=== PATIENT | male | born 1955 | race Caucasian/White ===

== ENCOUNTER → 2018-06-29 | Outpatient (CLI) | payer BC ==
[2018-06-29 08:10] LABS: Basophils # (A) 0.1 k/uL (0-0.2); Basophils % (A) 1 %; Eosinophils # (A) 0.3 k/uL (0-0.7); Eosinophils % (A) 5 %; HCT 49.5 % (39.0-53.0); HGB 16.6 gm/dL (13.0-17.5); Lymphocytes # (A) 1.8 k/uL (1.0-4.8); Lymphocytes % (A) 26 %; MCH 28.9 pg (25.0-35.0); MCHC 33.5 g/dL (31.0-37.0); MCV 86.3 fL (80.0-100.0); Mean Platelet Volume 7.6; Monocytes # (A) 0.5 k/uL (0-1.0); Monocytes % (A) 7 %; Neutrophils # (A) 4.1 k/uL (1.3-7.7); Neutrophils % (A) 59 %; Platelet Count 223 k/uL (150-450); RBC 5.74 m/uL (4.30-5.90); RDW 12.6 % (11.5-15.5); WBC 6.9 k/uL (3.8-10.6)
[2018-06-29 08:38] LABS: Erythrocyte Sedimentation Rate 2 mm/hr (0-15)
[2018-06-29 16:54] LABS: ALT 20 U/L (10-49); AST 18 U/L (14-35); Alkaline Phosphatase 62 U/L (41-126); C Reactive Protein <0.4 mg/dL (0.0-0.8); Calcium 9.4 mg/dL (8.7-10.3); Carbon Dioxide 22.1 mmol/L (21.6-31.8); Chloride 110 mmol/L (96-109); Cholesterol 142 mg/dL (0-200); Creatine Kinase 98 U/L (35-257); Globulin 1.5 g/dL (2.1-3.7); Glucose 99 mg/dL (70-110); LDL Cholesterol,Calculated 72.2 mg/dL (0.0-131.0); Potassium 4.5 mmol/L (3.5-5.5); Prostate Specific Antigen 0.5 ng/mL (0.0-4.5); Sodium 140 mmol/L (135-145); Total Bilirubin 0.6 mg/dL (0.3-1.2); Total Protein 5.7 g/dL (6.2-8.2)
== END ==
LOC: LABWHC1 07:05
PROVIDERS: ATTEND Internal Medicine
DX: N40.0 Benign prostatic hyperplasia without lower urinary tract symptoms (principal); E11.9 Type 2 diabetes mellitus without complications; E78.5 Hyperlipidemia, unspecified; I10 Essential (primary) hypertension; E87.2 Acidosis; E55.9 Vitamin D deficiency, unspecified
CPT/HCPCS: 36415; 80053; 80061; 82306; 82550; 84153; 84443; 85025; 85652; 86140

== ENCOUNTER → 2018-11-09 | Outpatient (CLI) | payer BC ==
[2018-11-09 16:39] LABS: Albumin 4.3 g/dL (3.80-4.90); Albumin/Globulin Ratio 2.53 (1.60-3.17); Bilirubin, Conjugated 0.2 mg/dL (0.20-0.40); Bilirubin,Unconjugated 0.6 mg/dL; Globulin 1.7 g/dL (1.6-3.3); Total Bilirubin 0.8 mg/dL (0.3-1.2)
== END | disposition home or self-care (01) ==
LOC: LABWHC1 08:52
PROVIDERS: ATTEND Internal Medicine
DX: R77.1 Abnormality of globulin (principal); R77.0 Abnormality of albumin; R77.8 Other specified abnormalities of plasma proteins
CPT/HCPCS: 36415; 80076

== ENCOUNTER 2018-11-13 19:11 | Observation (INO) | payer BC ==
[2018-11-13 18:05] LABS: Basophils # (A) 0.1 k/uL (0-0.2); Basophils % (A) 1 %; Eosinophils # (A) 0.3 k/uL (0-0.7); Eosinophils % (A) 3 %; HCT 47.9 % (39.0-53.0); HGB 15.9 gm/dL (13.0-17.5); Lymphocytes # (A) 1.9 k/uL (1.0-4.8); Lymphocytes % (A) 16 %; MCH 29.1 pg (25.0-35.0); MCHC 33.3 g/dL (31.0-37.0); MCV 87.5 fL (80.0-100.0); Mean Platelet Volume 6.7; Monocytes # (A) 0.7 k/uL (0-1.0); Monocytes % (A) 7 %; Neutrophils # (A) 8.2 k/uL (1.3-7.7); Neutrophils % (A) 73 %; Platelet Count 239 k/uL (150-450); RBC 5.48 m/uL (4.30-5.90); RDW 12.7 % (11.5-15.5); WBC 11.3 k/uL (3.8-10.6)
[2018-11-13 18:13] LABS: ALT 32 U/L (21-72); AST 22 U/L (17-59); Albumin 4.2 g/dL (3.5-5.0); Alkaline Phosphatase 67 U/L (38-126); Anion Gap 10 mmol/L; Blood Urea Nitrogen 17 mg/dL (9-20); Calcium 9.9 mg/dL (8.4-10.2); Carbon Dioxide 26 mmol/L (22-30); Chloride 101 mmol/L (98-107); Glucose 86 mg/dL (74-99); Lipase 153 U/L (23-300); Potassium 4.2 mmol/L (3.5-5.1); Sodium 137 mmol/L (137-145); Total Bilirubin 1.1 mg/dL (0.2-1.3); Total Protein 6.9 g/dL (6.3-8.2)
--- NOTE | 2018-11-13 18:25 | CT ---
EXAMINATION TYPE: CT abdomen pelvis w con DATE OF EXAM: 11/13/2018 COMPARISON: None HISTORY: Abdominal pain CT DLP: 1497 mGycm Automated exposure control for dose reduction was used. TECHNIQUE: Helical acquisition of images was performed from the lung bases through the pelvis. CONTRAST: Performed with Oral Contrast and with IV Contrast, patient injected with 100 mL of Isovue 3 00. FINDINGS: LUNG BASES: No acute findings. Coronary calcifications noted within the LAD. LIVER/GB: No significant abnormality is appreciated. PANCREAS: No significant abnormality is seen. SPLEEN: Spleen is normal in volume. However, there are approximately twelve 12 multifocal 1 - 2 cm ro unded splenic lesions which are hypodense, of soft tissue CT attenuation. Differential includes infec tion, sarcoidosis, as well as lymphoma metastatic disease. The spleen was reportedly normal on the ultrasound. There are no other comparison imaging studies. If clinically necessary, MRI and/o r PET CT can be used to delineate the differential diagnostic considerations. Also, if prior CT or MR I are available for direct comparison that would also delineate the differential considerations, and an addendum can be made to this report. ADRENALS: No significant abnormality is seen. KIDNEYS: No significant abnormality is seen. FREE AIR: No free air is visualized. RETROPERITONEAL ADENOPATHY: None visualized REPRODUCTIVE ORGANS: No significant abnormality is seen URINARY BLADDER: No significant abnormality is seen. PELVIC ADENOPATHY: None visualized. OSSEOUS STRUCTURES: No significant abnormality is seen. BOWEL: The most striking finding on this CT examination is moderate-marked ill-defined circumferent ial mural thickening at the junction of the rectum and sigmoid, with moderate marked pericolonic robert atous reticulation and involvement of a large diverticulum. Tiny lymph nodes are noted tracking up th e sigmoid mesocolon with a few scattered subcentimeter nonenlarged left periaortic lymph nodes extend ing up to a position immediately caudal to the left renal vein. OTHER: No acute vascular findings IMPRESSION: THE ACUTE PROCESS IS THAT OF MODERATE-PLUS ACUTE DISTAL SIGMOID DIVERTICULITIS DESCRIBED. UNDERLYI NG MUCOSAL PROCESS CAN BE EXCLUDED WITH EVENTUAL FOLLOW-UP DIRECT VISUALIZATION. MULTIFOCAL SPLENIC LESIONS. CORONARY CALCIFICATIONS.
[2018-11-13] MEDS ORDERED: LEVOFLOXACIN 750MG-D5W PMX 750 MG in DEXTROSE/WATER 1 150ML.BAG IVPB STA (20:01)
[2018-11-13] MEDS ORDERED: metroNIDAZOLE-NS PMX 500 MG in SALINE 1 100ML.BAG IVPB STA (20:04)
--- NOTE | 2018-11-13 20:18 | ED ---
Abdominal Pain HPI - General Chief Complaint: Abdominal Pain Stated Complaint: Abn CT Time Seen by Provider: 11/13/18 20:00 Source: patient, RN notes reviewed Mode of arrival: ambulatory Limitations: no limitations - History of Present Illness Initial Comments: 63-year-old male presented from outpatient CT with chief complaint of abdominal pain. Patient's been having abdominal pain and cramping with mild diarrhea over the last week. Patient saw PCP today and sent him hospital for CT. Patient CT shows evidence of diverticulitis. Patient states he has no history of this. Denies fever, chills, night sweats, chest pain, nausea vomiting. Patient had no noted melena or hematochezia. - Related Data Home Medications Medication Instructions Recorded Confirmed Ascorbic Acid [Vitamin C] 1,000 mg PO DAILY 11/13/18 11/13/18 Aspirin EC [Ecotrin Low Dose] 81 mg PO DAILY 11/13/18 11/13/18 Cholecalciferol [Vitamin D3] 1,000 unit PO DAILY 11/13/18 11/13/18 Lisinopril-Hctz 10-12.5 mg 1 tab PO Q48H 11/13/18 11/13/18 [Zestoretic 10-12.5] Metoprolol Tartrate [Lopressor] 25 mg PO BID 11/13/18 11/13/18 Pravastatin Sodium [Pravachol] 20 mg PO HS 11/13/18 11/13/18 Allergies Allergy/AdvReac Type Severity Reaction Status Date / Time No Known Allergies Allergy Verified 11/13/18 20:06 Review of Systems ROS Statement: Those systems with pertinent positive or pertinent negative responses have been documented in the HPI. ROS Other: All systems not noted in ROS Statement are negative. Past Medical History Past Medical History: Hyperlipidemia, Hypertension History of Any Multi-Drug Resistant Organisms: None Reported Past Surgical History: Hernia Repair Past Psychological History: No Psychological Hx Reported Smoking Status: Never smoker Past Alcohol Use History: None Reported Past Drug Use History: None Reported General Exam Limitations: no limitations General appearance: alert, in no apparent distress Head exam: Present: atraumatic, normocephalic, normal inspection Neck exam: Present: normal inspection. Absent: tenderness, meningismus, lymphadenopathy Respiratory exam: Present: normal lung sounds bilaterally. Absent: respiratory distress, wheezes, rales, rhonchi, stridor Cardiovascular Exam: Present: regular rate, normal rhythm, normal heart sounds. Absent: systolic murmur, diastolic murmur, rubs, gallop, clicks GI/Abdominal exam: Present: soft, tenderness (Moderate left lower quadrant tenderness), normal bowel sounds. Absent: distended, guarding, rebound, rigid Course Vital Signs 11/13/18 19:41 Temperature 98.4 F Pulse Rate 82 Respiratory 16 Rate Blood Pressure 166/89 O2 Sat by Pulse 98 Oximetry Medical Decision Making - Medical Decision Making 63-year-old male presented for abdominal pain. CT shows evidence of moderate diverticulitis. Patient will be admitted for IV antibiotics, surgery consult. - Lab Data Result diagrams: 11/13/18 17:45 11/13/18 17:45 Lab Results 11/13/18 11/13/18 Range/Units 17:45 17:45 WBC 11.3 H (3.8-10.6) k/uL RBC 5.48 (4.30-5.90) m/uL Hgb 15.9 (13.0-17.5) gm/dL Hct 47.9 (39.0-53.0) % MCV 87.5 (80.0-100.0) fL MCH 29.1 (25.0-35.0) pg MCHC 33.3 (31.0-37.0) g/dL RDW 12.7 (11.5-15.5) % Plt Count 239 (150-450) k/uL Neutrophils % 73 % Lymphocytes % 16 % Monocytes % 7 % Eosinophils % 3 % Basophils % 1 % Neutrophils # 8.2 H (1.3-7.7) k/uL Lymphocytes # 1.9 (1.0-4.8) k/uL Monocytes # 0.7 (0-1.0) k/uL Eosinophils # 0.3 (0-0.7) k/uL Basophils # 0.1 (0-0.2) k/uL Sodium 137 (137-145) mmol/L Potassium 4.2 (3.5-5.1) mmol/L Chloride 101 (98-107) mmol/L Carbon Dioxide 26 (22-30) mmol/L Anion Gap 10 mmol/L BUN 17 (9-20) mg/dL Creatinine 0.69 (0.66-1.25) mg/dL Est GFR (CKD-EPI)AfAm >90 (>60 ml/min/1.73 sqM) Est GFR (CKD-EPI)NonAf >90 (>60 ml/min/1.73 sqM) Glucose 86 (74-99) mg/dL Calcium 9.9 (8.4-10.2) mg/dL Total Bilirubin 1.1 (0.2-1.3) mg/dL AST 22 (17-59) U/L ALT 32 (21-72) U/L Alkaline Phosphatase 67 (38-126) U/L Total Protein 6.9 (6.3-8.2) g/dL Albumin 4.2 (3.5-5.0) g/dL Lipase 153 (23-300) U/L Disposition Clinical Impression: Diverticulitis Disposition: ADMITTED IP TO THIS HOSP Condition: Stable Referrals: Nikhil Riley MD [Primary Care Provider] - 1-2 days
[2018-11-13] MEDS ORDERED: ONDANSETRON 4 MG/2 ML VIAL IVP PRN (20:41)
[2018-11-13] MEDS ORDERED: ACETAMINOPHEN TAB 325 MG TAB PO PRN (20:41)
[2018-11-13] MEDS ORDERED: HYDROcodone/APAP 5-325MG 1 EACH TAB PO PRN (20:41)
[2018-11-13] MEDS ORDERED: MORPHINE SULFATE 4 MG/ML SYRINGE IV PRN (20:41)
[2018-11-13] MEDS ORDERED: NALOXONE 0.4 MG/ML 1 ML VIAL IV PRN (20:41)
[2018-11-13] MEDS: SODIUM CHLORIDE 0.9% 1,000 ML IV SCH (20:46)
[2018-11-13 21:59] VITALS: BMI 29.5
[2018-11-13] MEDS: METOPROLOL TARTRATE 25 MG TAB PO SCH (23:18)
[2018-11-13] MEDS: PRAVASTATIN SODIUM 20 MG TAB PO SCH (23:19)
[2018-11-14] MEDS: metroNIDAZOLE-NS PMX 500 MG in SALINE 1 100ML.BAG IVPB SCH ×3 (05:47→22:37)
[2018-11-14] MEDS: LISINOPRIL-HCTZ 10-12.5 MG 1 EACH TAB PO SCH (08:34)
[2018-11-14] MEDS: METOPROLOL TARTRATE 25 MG TAB PO SCH ×2 (08:34→21:02)
[2018-11-14] MEDS: ASCORBIC ACID 500 MG TAB PO SCH (08:34)
[2018-11-14] MEDS: CHOLECALCIFEROL 1,000 UNIT TAB PO SCH (08:34)
[2018-11-14] MEDS: ASPIRIN 81 MG PO SCH (08:34)
[2018-11-14] MEDS: SODIUM CHLORIDE 0.9% 1,000 ML IV SCH ×2 (08:37→17:33)
--- NOTE | 2018-11-14 15:25 | P.GSCN ---
History of Present Illness Consult date: 11/14/18 History of present illness: This is a 63-year-old male who presented with a chief complaint of lower abdominal pain. This been going on for a couple days he describes the pain as cramping. He's never had pain like this before in the past. He denies any fevers or chills. He's had some diarrhea. He is also passing normal bowel movements. He denies any blood in his stool. His last colonoscopy was several years ago he states and he states it was normal at that time. He denies any abdominal surgery in the past. He states that since he's been in the hospital was pain is slightly improved. Past Medical History Past Medical History: Hyperlipidemia, Hypertension History of Any Multi-Drug Resistant Organisms: None Reported Past Surgical History: Hernia Repair Past Psychological History: No Psychological Hx Reported Smoking Status: Never smoker Past Alcohol Use History: None Reported Past Drug Use History: None Reported Medications and Allergies Home Medications Medication Instructions Recorded Confirmed Type Ascorbic Acid [Vitamin C] 1,000 mg PO DAILY 11/13/18 11/13/18 History Aspirin EC [Ecotrin Low Dose] 81 mg PO DAILY 11/13/18 11/13/18 History Cholecalciferol [Vitamin D3] 1,000 unit PO DAILY 11/13/18 11/13/18 History Lisinopril-Hctz 10-12.5 mg 1 tab PO Q48H 11/13/18 11/13/18 History [Zestoretic 10-12.5] Metoprolol Tartrate [Lopressor] 25 mg PO BID 11/13/18 11/13/18 History Pravastatin Sodium [Pravachol] 20 mg PO HS 11/13/18 11/13/18 History Allergies Allergy/AdvReac Type Severity Reaction Status Date / Time No Known Allergies Allergy Verified 11/13/18 20:06 Surgical - Exam Osteopathic Statement: *. No significant issues noted on an osteopathic structural exam other than those noted in the History and Physical/Consult. Vital Signs Temp Pulse Resp BP Pulse Ox 98.4 F 82 16 166/89 98 11/13/18 19:41 11/13/18 19:41 11/13/18 19:41 11/13/18 19:41 11/13/18 19:41 - General well developed, well nourished, no distress - Eyes PERRL - Neck no masses, trachea midline - Respiratory normal expansion, normal respiratory effort - Cardiovascular Rhythm: regular - Abdomen Mild tenderness palpation in the lower abdomen. No rebound rigidity or guarding Abdomen: soft - Musculoskeletal normal gait - Psychiatric oriented to time, oriented to person, oriented to place Results - Labs 11/13/18 17:45 11/13/18 17:45 Abnormal Lab Results - Last 24 Hours (Table) 11/13/18 Range/Units 17:45 WBC 11.3 H (3.8-10.6) k/uL Neutrophils # 8.2 H (1.3-7.7) k/uL Diabetes panel 11/13/18 Range/Units 17:45 Sodium 137 (137-145) mmol/L Potassium 4.2 (3.5-5.1) mmol/L Chloride 101 (98-107) mmol/L Carbon Dioxide 26 (22-30) mmol/L BUN 17 (9-20) mg/dL Creatinine 0.69 (0.66-1.25) mg/dL Glucose 86 (74-99) mg/dL Calcium 9.9 (8.4-10.2) mg/dL AST 22 (17-59) U/L ALT 32 (21-72) U/L Alkaline Phosphatase 67 (38-126) U/L Total Protein 6.9 (6.3-8.2) g/dL Albumin 4.2 (3.5-5.0) g/dL Calcium panel 11/13/18 Range/Units 17:45 Calcium 9.9 (8.4-10.2) mg/dL Albumin 4.2 (3.5-5.0) g/dL Pituitary panel 11/13/18 Range/Units 17:45 Sodium 137 (137-145) mmol/L Potassium 4.2 (3.5-5.1) mmol/L Chloride 101 (98-107) mmol/L Carbon Dioxide 26 (22-30) mmol/L BUN 17 (9-20) mg/dL Creatinine 0.69 (0.66-1.25) mg/dL Glucose 86 (74-99) mg/dL Calcium 9.9 (8.4-10.2) mg/dL Adrenal panel 11/13/18 Range/Units 17:45 Sodium 137 (137-145) mmol/L Potassium 4.2 (3.5-5.1) mmol/L Chloride 101 (98-107) mmol/L Carbon Dioxide 26 (22-30) mmol/L BUN 17 (9-20) mg/dL Creatinine 0.69 (0.66-1.25) mg/dL Glucose 86 (74-99) mg/dL Calcium 9.9 (8.4-10.2) mg/dL Total Bilirubin 1.1 (0.2-1.3) mg/dL AST 22 (17-59) U/L ALT 32 (21-72) U/L Alkaline Phosphatase 67 (38-126) U/L Total Protein 6.9 (6.3-8.2) g/dL Albumin 4.2 (3.5-5.0) g/dL Assessment and Plan Assessment: Acute uncomplicated diverticulitis Plan: Continue IV antibiotics. Patient may have clear liquids today. As his pain i mproves we may advance his diet. No plans for acute surgical intervention. Patient will need a colonoscopy as an outpatient 6 weeks after resolution of diverticulitis.
[2018-11-14] MEDS: LEVOFLOXACIN 750MG-D5W PMX 750 MG in DEXTROSE/WATER 1 150ML.BAG IVPB SCH (21:02)
[2018-11-14] MEDS: PRAVASTATIN SODIUM 20 MG TAB PO SCH (21:02)
[2018-11-15] MEDS: SODIUM CHLORIDE 0.9% 1,000 ML IV SCH ×2 (05:36→12:07)
[2018-11-15] MEDS: metroNIDAZOLE-NS PMX 500 MG in SALINE 1 100ML.BAG IVPB SCH ×2 (05:52→13:21)
[2018-11-15] MEDS: METOPROLOL TARTRATE 25 MG TAB PO SCH ×2 (08:51→22:20)
[2018-11-15] MEDS: ASPIRIN 81 MG PO SCH (08:51)
[2018-11-15] MEDS: CHOLECALCIFEROL 1,000 UNIT TAB PO SCH (08:51)
[2018-11-15] MEDS: ASCORBIC ACID 500 MG TAB PO SCH (08:51)
[2018-11-15 13:25] LABS: Basophils % (A) 0 %; Eosinophils # (A) 0.2 k/uL (0-0.7); Eosinophils % (A) 2 %; HCT 47.8 % (39.0-53.0); HGB 15.3 gm/dL (13.0-17.5); Lymphocytes # (A) 1.3 k/uL (1.0-4.8); Lymphocytes % (A) 11 %; MCH 28.2 pg (25.0-35.0); MCHC 32.1 g/dL (31.0-37.0); Mean Platelet Volume 7.2; Monocytes # (A) 0.7 k/uL (0-1.0); Monocytes % (A) 6 %; Neutrophils % (A) 80 %; Platelet Count 241 k/uL (150-450); RBC 5.43 m/uL (4.30-5.90); RDW 12.7 % (11.5-15.5); WBC 11.3 k/uL (3.8-10.6)
--- NOTE | 2018-11-15 13:30 | P.PN ---
Subjective Progress Note Date: 11/15/18 She states he's feeling well today. He had no acute events overnight. He still has minimal lower abdominal tenderness. Mostly when he is having a bowel movement. He denies any diarrhea. He denies any blood in his stool. He is tolerating his full liquid diet Objective - Vital Signs Vital signs: Vital Signs Temp 97.3 F L 11/15/18 07:50 Pulse 79 11/15/18 07:50 Resp 16 11/15/18 07:50 BP 141/67 11/15/18 07:50 Pulse Ox 97 11/15/18 07:50 Intake & Output 11/14/18 11/15/18 11/15/18 18:59 06:59 18:59 Intake Total 1979 600 Balance 1979 600 Intake: Intake, IV Titration 900 600 Amount Levofloxacin 750Mg-D5w 150 Pmx 750 mg In Dextrose/ Water 1 150ml.bag @ 100 mls/hr IVPB HS SAMIRA Rx#: [id number] Sodium Chloride 0.9% 1, 800 450 000 ml @ 100 mls/hr IV . Q10H SAMIRA Rx#:[id number] metroNIDAZOLE-NS PMX 500 100 mg In Saline 1 100ml.bag @ 100 mls/hr IVPB Q8H SAMIRA Rx#:[id number] Oral 1080 Other: Voiding Method Toilet # Voids 1 # Bowel Movements 3 - Constitutional General appearance: Present: cooperative - Respiratory Details: Nonlabored - Cardiovascular Rhythm: regular - Gastrointestinal Gastrointestinal Comment(s): Soft mild tenderness palpation lower abdomen nondistended no rebound rigidity or guarding - Psychiatric Psychiatric: Present: A&O x's 3 - Labs CBC & Chem 7: 11/13/18 17:45 11/13/18 17:45 Labs: Microbiology - Last 24 Hours (Table) 11/13/18 20:35 Blood Culture - Preliminary Blood No Growth after 24 hours Assessment and Plan Assessment: Acute uncomplicated diverticulitis Plan: Patient is on antibiotics. He may advance his diet once he is tolerating falls to a soft low-residue diet. No plans for acute surgical intervention. Once his pain is resolved and is tolerating his diet he may be discharged from a surgical standpoint and follow up in 6 weeks for colonoscopy.
--- NOTE | 2018-11-15 19:07 | HP ---
HISTORY AND PHYSICAL DATE OF ADMISSION: 11/13/2018 DATE OF SERVICE: 11/14/2018 This is a patient of Dr. Riley office and he is being admitted by me as I am covering Dr. Riley this weekend. HISTORY OF PRESENT ILLNESS: This is a 63-year-old white male who had a CT scan, done as an outpatient and following this the patient went to the emergency room. In the emergency, he was complaining of lower abdominal pain and the patient had lower abdominal pain for 2-3 days and this was getting worse and pain was like a cramping pain and he also has some diarrhea but no blood in the stool. The CT scan showed what was consistent with acute distal sigmoid diverticulitis, his CBC showed WBC count of 11.3, hemoglobin 15.9, and platelet count 239,000. Sodium 137, potassium 4.2, BUN 17, creatinine 0.69. Liver enzymes within normal limits. Blood sugar was 86. The patient was admitted to the hospital for further evaluation and treatment. PAST MEDICAL HISTORY: Reveals that he is known to have hypertensive cardiovascular disease and hyperlipidemia. CURRENT MEDICATIONS: Include Lopressor 25 mg mg p.o. b.i.d. He is also on vitamin D3 and vitamin C, Pravachol 20 mg p.o. daily, Zestoretic 10-12.5 every other day, aspirin 81 mg p.o. daily. ALLERGIES: He has no known drug allergies. SOCIAL HISTORY: He does not smoke and he does not drink alcohol. FAMILY HISTORY: Positive for hypertension. REVIEW OF SYSTEMS: Patient denies any headache. Appetite has been good. He has abdominal pain as mentioned before and has had some diarrhea. He has no polyuria or dysuria. He has no neurological symptoms. PHYSICAL EXAMINATION: Reveals a 63-year-old white male well nourished and well developed. He is in no acute distress, but he is still complaining of some pain and tenderness in the lower abdomen in the left lower quadrant area. He is afebrile with a temperature 98.6. There is no jaundice. There is no generalized lymphadenopathy. No petechia or bruises. Heart is in sinus rhythm. Lungs are clear to auscultation and percussion. ABDOMEN: Soft. There is tenderness in the left lower quadrant. Examination of the lower extremities reveal no pitting edema. Neurologic examination does not reveal any localizing signs. IMPRESSION: 1. Lower abdominal pain. 2. Acute diverticulitis of the sigmoid colon. 3. Hypertensive cardiovascular disease. 4. Hyperlipidemia. PLAN: Patient will be admitted to the hospital. We will start him on IV antibiotics and he will be placed on Levaquin and metronidazole. We will also get a surgical consultation and initially placed him on clear liquids and will advance diet gradually. Prognosis guarded. The diagnosis, prognosis and therapeutic plans were discussed in detail with the patient and also with his . MMTIMOTHY / ZEENAT: [id number] /
[2018-11-15] MEDS: PRAVASTATIN SODIUM 20 MG TAB PO SCH (22:20)
[2018-11-15] MEDS: LEVOFLOXACIN 750MG-D5W PMX 750 MG in DEXTROSE/WATER 1 150ML.BAG IVPB SCH (22:20)
[2018-11-16] MEDS: metroNIDAZOLE-NS PMX 500 MG in SALINE 1 100ML.BAG IVPB SCH ×4 (00:20→22:17)
[2018-11-16] MEDS: METOPROLOL TARTRATE 25 MG TAB PO SCH ×2 (07:16→20:35)
[2018-11-16] MEDS: ASCORBIC ACID 500 MG TAB PO SCH (07:16)
[2018-11-16] MEDS: CHOLECALCIFEROL 1,000 UNIT TAB PO SCH (07:16)
[2018-11-16] MEDS: LISINOPRIL-HCTZ 10-12.5 MG 1 EACH TAB PO SCH (07:16)
[2018-11-16] MEDS: ASPIRIN 81 MG PO SCH (07:16)
[2018-11-16] MEDS: SODIUM CHLORIDE 0.9% 1,000 ML IV SCH ×3 (09:16→22:18)
[2018-11-16] MEDS: ENOXAPARIN 40 MG/0.4 ML SYRINGE SQ SCH (09:20)
--- NOTE | 2018-11-16 12:33 | US ---
EXAMINATION TYPE: US abdomen limited DATE OF EXAM: 11/16/2018 COMPARISON: 11/13/2018 CLINICAL HISTORY: abnormal multifocal splenic lesion. EXAM MEASUREMENTS: Spleen: 11.1 x 11.2 x 4.4cm Left Kidney: 12.6 x 6.5 x 5.6cm 1. Spleen: very subtle hyperechoic lobular area noted inferiorly = 4.6 x 4.2 x 2.0cm; multiple US mac erika settings used to discern splenic lesions 2. Left Kidney: no hydronephrosis or masses are seen IMPRESSION: There is a 4.6 cm hyperechoic area within the spleen. The multiple smaller lesion seen by CT scan are not as well-seen by ultrasound. Differential diagnosis would include infection, sarcoido sis, metastasis, multiple hemangioma. MRI would be required for further evaluation.
--- NOTE | 2018-11-16 16:36 | P.PN ---
Subjective Progress Note Date: 11/16/18 She states he's feeling well today. He had no acute events overnight. He still has minimal lower abdominal tenderness. Mostly when he is having a bowel movement. He denies any diarrhea. He denies any blood in his stool. Objective - Vital Signs Vital signs: Vital Signs Temp 98.4 F 11/16/18 14:41 Pulse 97 11/16/18 14:41 Resp 12 11/16/18 14:41 BP 150/71 11/16/18 14:41 Pulse Ox 99 11/16/18 14:41 Intake & Output 11/15/18 11/16/18 11/16/18 18:59 06:59 18:59 Intake Total 2260 1050 Balance 2260 1050 Intake: Intake, IV Titration 600 1050 Amount Sodium Chloride 0.9% 1, 600 1050 000 ml @ 75 mls/hr IV . [id number] SAMIRA Rx#:[id number] Oral 1660 Other: Voiding Method Toilet Toilet # Voids 2 2 - Constitutional General appearance: Present: cooperative - Respiratory Details: nonlabored - Cardiovascular Rhythm: regular - Psychiatric Psychiatric: Present: A&O x's 3 - Labs CBC & Chem 7: 11/15/18 13:12 11/13/18 17:45 Labs: Microbiology - Last 24 Hours (Table) 11/13/18 20:35 Blood Culture - Preliminary Blood No Growth after 48 hours Assessment and Plan Assessment: Acute uncomplicated diverticulitis Plan: Patient is on antibiotics. As his pain improves he may have his diet advanced. No plans for acute surgical intervention. Once his pain is resolved and is tolerating his diet he may be discharged from a surgical standpoint and follow up in 6 weeks for colonoscopy.
--- NOTE | 2018-11-16 18:36 | MR ---
EXAMINATION TYPE: MR abdomen wo/w con DATE OF EXAM: 11/16/2018 COMPARISON: CT 11/13/2018; ultrasound 11/16/2018 HISTORY: abnormal u/s CONTRAST: Standard multiplanar, multisequence MRI departmental protocol utilizing 7.5 mL intravenous Gadavist gadolinium contrast. FINDINGS: Liver and biliary tree: Negative. Pancreas: Negative. Spleen: The previously seen CT hypodense multifocal lesions are well demonstrated on the T1 postcontr ast sequences, but not the T2 weighted sequences. Therefore, the lesions do not represent splenic hem angiomas or cysts. Differential diagnosis includes inflammatory/infectious etiologies, as well as lym phoma and metastatic disease. Hamartomas are rare, and multifocal splenic hamartomas are even more r are, except in tuberous sclerosis. Kidneys and adrenals: Negative. Lymph node stations: No adenopathy. Other: No incidentals. IMPRESSION: The multifocal CT lesions are redemonstrated, but they are nearly isoechoic on sonography and on T2W sequences.
--- NOTE | 2018-11-16 20:11 | PN ---
PROGRESS NOTE NEW DATA: FULL CODE. His height is 5 feet 5 inches, weight 82.7 kg, BSA 1.90 m2, BMI 30.3 kg/m2. ALLERGIES: UNKNOWN. HISTORY: Mr. Baldemar Singer was seen initially in the office with a complaint of abdominal pain, mainly on the left side. At that time the patient was sent for a CT scan of the abdomen in the hospital as well as laboratories. He was started on antibiotic; given a prescription for Cipro 500 mg twice a day and Flagyl 500 mg q.8 hours. Subsequently the patient had the CT scan of the abdomen, which indicated that the spleen was normal volume, but there were 12 multifocal 1-2 cm rounded splenic lesions, hypodense, and the differentials mentioned were infection, sarcoidosis, lymphoma or metastatic disease. Spleen was reported normal on an ultrasound done on 12/18/2009. They recommended MRI for that purpose. Otherwise, pancreas was normal. Liver and gallbladder were normal. The lung bases were normal. Adrenals were normal. Kidney was normal. No free air and no retroperitoneal adenopathy. Reproductive organ was negative. Bladder was negative. No pelvic adenopathy and none in the osseous structures. However, in the bowel they found the most striking evidence. There is markedly ill-defined circumferential mural thickening at the junction of the rectum and the sigmoid with moderate marked pericolonic edematous reticulation, involvement of large diverticula. There are a few scattered non-enlarged left periaortic lymph nodes extending to a position caudal to the left renal vein. The final impression is 1) acute process of moderate plus acute distal sigmoid diverticulitis, with the underlying mucosal process and needed visualization in the future; 2) multiple splenic lesions; 3) coronary calcifications. The patient was subsequently admitted to the hospital by Dr. Gary Magallon in my temporary absence and was followed by Dr. Chema Ryder, the surgeon, in surgical consultation. Today Dr. Ryder did see the patient and stated that he still has the minimal lower abdominal tenderness when he has bowel movement. No diarrhea. His impression is acute uncomplicated diverticulitis. His plan is to continue the antibiotic; no surgical intervention; and once the pain is resolved and he is tolerating his diet, he can be discharged from a surgical standpoint and later on in 6 weeks he can have a colonoscopy. The patient also today had an ultrasound of the abdomen because of the spleen, and it was found again that the spleen size is 11.1 x 11.2 x 4.4 cm. The left kidney is 12.6 x 6.5 x 5.6. The spleen has a hyperechoic lobular area 4.6 x 4.2 x 2.0. Left kidney has no hydronephrosis. The impression is a 4.6 hyperechoic area within the spleen. The multiple smaller lesions by the CT scan are not well seen by the ultrasound. His differential diagnosis is infection, sarcoidosis, metastasis, multiple hemangioma. He is requiring an MRI for this specific evaluation. Subsequently, after I saw and evaluated the patient clinically, an MRI was ordered to be done. I called the nursing staff subsequently to proceed with an MRI. It will be done at 4:30 this evening and we will subsequently follow the results. As of today, the patient was seen and I talked with the patient and his as well. His vital signs were stable. His temperature was 98.4, pulse regular sinus at 97, his respiratory rate 12, his blood pressure 150/71 and oxygen saturation was 99%. His laboratory today shows white count mildly elevated at 11.3 with hemoglobin 15.3 and hematocrit 47.8. His neutrophil count was 9 and his platelet count 241, normal. On admission on November 13 his renal function was stable with the estimated glomerular filtration rate for non- more than 90. The patient also is not a diabetic and his blood sugar on admission was 86. Normal liver enzymes. The lipase was 153. On examination, the patient was conscious, alert, oriented x3. His was at bedside. His antibiotic is infusing. Neck was supple. Oropharynx was normal. Chest was clear to auscultation and percussion. No wheezes. No rhonchi. The heart was regular sinus rhythm. PMI in the fifth intercostal space. Normal S1, S2. No gallop. ABDOMEN: He had tenderness on the left side of the colon toward the sigmoid and rectosigmoid. molding machine tender with palpation. Still has bowel movement and advised to continue with the soft diet. No advances at this time. The antibiotic is infusing. Extremities have no edema and positive pulses. ASSESSMENT: 1. Acute diverticulitis of the sigmoid area with diverticular disease. 2. Underlying multiple nodules of the spleen. Etiology is unclear. Further treatment depends on the results of the investigation with the MRI of the spleen. Further consultation depends also on the result. We will repeat CBC with differential in a.m. Please note: I did call him and discussed with him the results of the ultrasound of the spleen as well as informing him that the MRI will be done for further investigation. MMODL / IJN: [id number] /
[2018-11-16] MEDS: LEVOFLOXACIN 750MG-D5W PMX 750 MG in DEXTROSE/WATER 1 150ML.BAG IVPB SCH (20:35)
[2018-11-16] MEDS: PRAVASTATIN SODIUM 20 MG TAB PO SCH (20:35)
--- NOTE | 2018-11-16 22:47 | PN ---
PROGRESS NOTE This was dictated on 11/15/2018, but apparently the dictation did not go through. So I am re-dictating. DATE OF SERVICE: 11/15/2018 This is a 63-year-old white male who was brought to the emergency room with lower abdominal pain which was mainly in the left lower abdomen. In the ER he had a CT scan of the abdomen and pelvis. This showed evidence of distal sigmoid diverticulitis, and the patient was admitted to the hospital for further evaluation and treatment. The patient was started on IV antibiotics and he is currently receiving IV Levaquin and metronidazole. Clinically patient is improving and patient's pain is also getting better. The patient was seen by Dr. Ryder, who saw the patient for surgical consultation. Dr. Ryder recommended that he continue the IV antibiotics and his diet can be gradually increased. Now he is on clear liquids, and we will increase that to a full liquid to soft diet. Dr. Ryder also recommended that he is not planning on any surgical intervention now; the patient may require a colonoscopy as outpatient when discharged. The patient is doing well and he is feeling better, but still there is some tenderness in the lower abdomen. Will continue IV antibiotics and will increase his diet to full liquid to soft diet. His vital signs are stable. He is afebrile. Heart is in sinus rhythm. Lungs are clear. There are no acute cardiorespiratory problems. Prognosis is guarded. The diagnosis, prognosis and therapeutic plans were discussed in detail with the patient and also with his . His primary care physician is Dr. Riley, who will resume care of this patient starting tomorrow. MMODL / IJN: [id number] /
[2018-11-17] MEDS: metroNIDAZOLE-NS PMX 500 MG in SALINE 1 100ML.BAG IVPB SCH ×2 (05:38→14:16)
[2018-11-17] MEDS: ASPIRIN 81 MG PO SCH (07:29)
[2018-11-17] MEDS: ASCORBIC ACID 500 MG TAB PO SCH (07:30)
[2018-11-17] MEDS: CHOLECALCIFEROL 1,000 UNIT TAB PO SCH (07:30)
[2018-11-17] MEDS: METOPROLOL TARTRATE 25 MG TAB PO SCH ×2 (07:30→22:44)
[2018-11-17] MEDS: ENOXAPARIN 40 MG/0.4 ML SYRINGE SQ SCH (07:31)
[2018-11-17 08:23] LABS: Basophils % (A) 1 %; Eosinophils # (A) 0.2 k/uL (0-0.7); Eosinophils % (A) 4 %; HCT 45.9 % (39.0-53.0); HGB 15.3 gm/dL (13.0-17.5); Lymphocytes # (A) 1.2 k/uL (1.0-4.8); Lymphocytes % (A) 20 %; MCH 28.9 pg (25.0-35.0); MCHC 33.3 g/dL (31.0-37.0); MCV 86.8 fL (80.0-100.0); Mean Platelet Volume 7.9; Monocytes # (A) 0.4 k/uL (0-1.0); Monocytes % (A) 7 %; Neutrophils # (A) 4.1 k/uL (1.3-7.7); Neutrophils % (A) 67 %; Platelet Count 258 k/uL (150-450); RBC 5.29 m/uL (4.30-5.90); RDW 13.3 % (11.5-15.5); WBC 6.2 k/uL (3.8-10.6)
[2018-11-17 08:24] LABS: Anion Gap 9 mmol/L; Blood Urea Nitrogen 10 mg/dL (9-20); Calcium 9.6 mg/dL (8.4-10.2); Carbon Dioxide 24 mmol/L (22-30); Chloride 107 mmol/L (98-107); Glucose 83 mg/dL (74-99); LDH 422 U/L (313-618); Potassium 4.2 mmol/L (3.5-5.1); Sodium 140 mmol/L (137-145)
--- NOTE | 2018-11-17 14:24 | P.PN ---
Subjective Progress Note Date: 11/17/18 He states he's feeling well today. He had no acute events overnight. He still has minimal lower abdominal tenderness. Mostly when he is having a bowel movement. He denies any diarrhea. He denies any blood in his stool. Objective - Vital Signs Vital signs: Vital Signs Temp 98.3 F 11/17/18 07:00 Pulse 71 11/17/18 07:00 Resp 19 11/17/18 07:20 BP 155/90 11/17/18 07:00 Pulse Ox 97 11/17/18 07:00 Intake & Output 11/16/18 11/17/18 11/17/18 18:59 06:59 18:59 Intake Total 262.5 500 Balance 262.5 500 Intake: Intake, IV Titration 262.5 Amount Sodium Chloride 0.9% 1, 262.5 000 ml @ 75 mls/hr IV . [id number] SAMIRA Rx#:[id number] Oral 500 Other: Voiding Method Toilet Toilet Toilet # Voids 2 2 - Constitutional General appearance: Present: cooperative - Respiratory Details: Nonlabored - Cardiovascular Rhythm: regular - Gastrointestinal Gastrointestinal Comment(s): S/NT/ND - Psychiatric Psychiatric: Present: A&O x's 3 - Labs CBC & Chem 7: 11/17/18 00:48 11/17/18 06:55 Labs: Abnormal Lab Results - Last 24 Hours (Table) 11/17/18 Range/Units 06:55 Creatinine 0.65 L (0.66-1.25) mg/dL Microbiology - Last 24 Hours (Table) 11/13/18 20:35 Blood Culture - Preliminary Blood No Growth after 72 hours Assessment and Plan Assessment: Acute uncomplicated diverticulitis Plan: Patient is on antibiotics. As his pain improves he may have his diet advanced. No plans for acute surgical intervention. Once his pain is resolved and is tolerating his diet he may be discharged from a surgical standpoint and follow up in 6 weeks for colonoscopy.
[2018-11-17] MEDS ORDERED: RX INFO: IV CONTRAST WAS GIVEN 1 EACH MISC MISCELLANE PRN (17:30)
--- NOTE | 2018-11-17 17:30 | P.CONS ---
History of Present Illness - Reason for Consult Consult date: 11/17/18 liver lesions Requesting physician: Nikhil Riley - Chief Complaint diverticulitis flair - History of Present Illness Mr. Singer is a very pleasant 63-year-old male with a history of diverticulosis with exacerbations of diverticulitis. Patient is currently admitted with complaints of the same, he had a CT scan of the abdomen and pelvis that revealed mural thickening in the rectosigmoid junction, liver also some suspicious areas in the spleen. An MRI of the liver/abdomen showed nothing in the liver but the spleen is calling these "12 round" areas not hemangiomas or cysts.Patient states colonoscopy a few years ago that was negative, never history of an EGD. He denies fevers, chills, difficulty swallowing, abdominal discomfort, indigestion or heartburn, unintentional weight loss, night sweats, changes in his energy levels, lymph node swellings, his appetite is good, he denies any unusual musculoskeletal aches, swelling, bleeding, no personal history of malignancy. cBC and CMP are within normal limits, moderate hypertention noted CT reports ill-defined circumferential mural thickening at the junction of the rectum and the sigmoid, some large diverticulum, some tiny lymph nodes, spleen is normal in volume poor but there are proximally 12 multifocal 1-2 cm rounded splenic lesions which are hypodense of soft tissue CT attenuation. Spleen was p reviously reported as normal on 12/18/2009 ultrasound. MRI of the abdomen states liver and biliary tree are negative. Hypodense lesions in the spleen are being described as potential inflammatory/infectious etiology, with the possibility of lymphoma or metastatic disease. 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 Past Drug Use History: None Reported Additional History: none reported Medications and Allergies Home Medications Medication Instructions Recorded Confirmed Type Ascorbic Acid [Vitamin C] 1,000 mg PO DAILY 11/13/18 11/13/18 History Aspirin EC [Ecotrin Low Dose] 81 mg PO DAILY 11/13/18 11/13/18 History Cholecalciferol [Vitamin D3] 1,000 unit PO DAILY 11/13/18 11/13/18 History Lisinopril-Hctz 10-12.5 mg 1 tab PO Q48H 11/13/18 11/13/18 History [Zestoretic 10-12.5] Metoprolol Tartrate [Lopressor] 25 mg PO BID 11/13/18 11/13/18 History Pravastatin Sodium [Pravachol] 20 mg PO HS 11/13/18 11/13/18 History Allergies Allergy/AdvReac Type Severity Reaction Status Date / Time No Known Allergies Allergy Verified 11/13/18 20:06 Physical Exam Vitals: Vital Signs Temp Pulse Resp BP Pulse Ox 11/17/18 15:00 98 F 66 12 164/84 95 11/17/18 07:20 19 11/17/18 07:00 98.3 F 71 12 155/90 97 11/17/18 01:13 98.1 F 78 19 118/75 97 11/16/18 19:44 98.0 F 94 20 161/81 97 Intake and Output 11/17/18 11/17/18 11/17/18 06:59 14:59 22:59 Intake Total 500 Balance 500 Intake: Oral 500 Other: Voiding Method Toilet # Voids 2 4 - Constitutional General appearance: average body habitus, cooperative, no acute distress - EENT Eyes: anicteric sclerae, EOMI, normal appearance ENT: hearing grossly normal, normal oropharynx - Neck Neck: no lymphadenopathy - Respiratory Respiratory: bilateral: CTA - Cardiovascular Rhythm: regular Heart sounds: normal: S1, S2 Abnormal Heart Sounds: no systolic murmur, no diastolic murmur, no rub, no S3 Gallop, no S4 Gallop, no click, no other leg Peripheral Edema: bilateral: None dorsalis pedis Peripheral Pulses: bilateral: Normal - Gastrointestinal General gastrointestinal: no absent bowel sounds, no decreased bowel sounds, no distended, no hepatomegaly, no hyperactive bowel sounds, normal bowel sounds, no organomegaly, no rigid, no scaphoid, soft, no splenomegaly, no tenderness, no umbilical hernia, no ventral hernia - Integumentary Integumentary: normal, normal turgor - Neurologic Neurologic: CNII-XII intact - Musculoskeletal Musculoskeletal: strength equal bilaterally - Psychiatric Psychiatric: A&O x's 3, appropriate affect, intact judgment & insight Results CBC & Chem 7: 11/17/18 00:48 11/17/18 06:55 Labs: Abnormal Lab Results - Last 24 Hours (Table) 11/17/18 Range/Units 06:55 Creatinine 0.65 L (0.66-1.25) mg/dL Microbiology - Last 24 Hours (Table) 11/13/18 20:35 Blood Culture - Preliminary Blood No Growth after [address] scan - abdomen: report reviewed CT scan - pelvis: report reviewed MRI - abdomen: report reviewed Assessment and Plan (1) Splenic lesion Narrative/Plan: So far the only location of any abnormalities is within the spleen. This is not an organ that is amenable to biopsy so, plan is CT of the chest to complete evaluation for any occult malignancy. There was no lymphadenopathy on physical exam to target. No B symptoms reported. CBC and CMP are all within normal limits. Recommend immediate reporting of any new or unusual symptoms, B- symptoms, changes in laboratory values or physical exam. Follow-up MRI of the spleen in 3 months. There is some mural thickening and some subcentimeter lymph nodes in the abdomen but patient states he is currently dealing with diverticulitis. He had a colonoscopy a few years ago that was negative. Recommendation would be for repeat endoscopy, patient states there is a plan for this to be done in the next few months, once he has recovered from his current condition. Will f/u in AM and review plan with pt. Current Visit: Yes Status: Acute Priority: High Code(s): D73.9 - DISEASE OF SPLEEN, UNSPECIFIED SNOMED Code(s): 186453308691072
--- NOTE | 2018-11-17 19:17 | CT ---
EXAMINATION TYPE: CT chest w con DATE OF EXAM: 11/17/2018 COMPARISON: None HISTORY: Spleen lesions CT DLP: 363.87 mGycm Automated exposure control for dose reduction was used. CONTRAST: CT scan of the chest is performed with IV Contrast, patient injected with 100 mL of Isovue 300. FINDINGS: There is coarse linear density at the lung bases. There is no pleural effusion. Heart size is normal. There is no pericardial effusion. There is no mediastinal adenopathy. There are no hilar masses. Tho racic aorta is intact without evidence of aneurysm or dissection. Bony thorax appears intact. There i s some spur formation in the thoracic spine. There is heterogeneity of throughout the spleen. IMPRESSION: Mild scarring and subsegmental atelectasis at the lung bases. Normal heart. Heterogeneity in the spleen could relate to the presence of multiple small masses.
--- NOTE | 2018-11-17 20:17 | PN ---
PROGRESS NOTE DATE OF SERVICE: 11/17/2018 DATA: FULL CODE. Height is 5 feet 5 inches, weight 82.7 kg, BSA 1.90 m2, BMI 30.3 kg/m2. ALLERGIES: UNKNOWN. The patient was seen today and evaluated. I had an extensive discussion with him and his in regard to his current testing and the current results. The patient's current vital signs include temperature 98, pulse 66 beats per minute, respiratory rate 12 per minute, blood pressure 164/84 with pulse ox on room air 95%. LABORATORY DATA/TESTING: His labs today on November 17 include white count 6.2, which is improved from yesterday and from the admission date. His hemoglobin is 15.3 and hematocrit 45.9 with a platelet count of 258. His neutrophil count now is normal. Sodium 140, potassium 4.2, chloride 107, carbon dioxide 24, anion gap of 9, BUN of 10, creatinine 0.65. Estimated glomerular filtration rate for non- more than 90. His glucose is 83. His underlying lactate dehydrogenase was 422, which is normal. He recently had an MRI, which is indicating multifocal lesions in the spleen that were shown on CT and re-demonstrated on the MRI and on sonography. The etiology of the hypodense multifocal lesions is still unknown. The lesions do not represent splenic hemangioma or cysts. The differential diagnosis is from inflammatory infectious etiology or lymphoma or metastatic disease. Hamartomas are rare and multifocal splenic hamartomas are even more rare. Prior to that, the patient had an ultrasound of the abdomen that showed a hyperechoic lobular area measuring 4.6 x 4.2 x 2 cm in the spleen. The left kidney was also normal and at that time they put a diagnosis of infection or sarcoidosis or metastasis or multiple hemangiomas and they requested an MRI, which was subsequently done and excluded hemangioma. The CT scan initially was done for the acute diverticulitis. However, the CT scan showed 12 multifocal lesions 1- 2 cm, rounded splenic, hypodense. The differential diagnosis again at that time was infection, sarcoidosis, lymphoma, metastatic disease. They stated that in comparison with the ultrasound of 12/18/2009 was normal. With this information, we requested a consultation with Oncology, Dr. Ann. Mirlande Sharma is a nurse practitioner for Dr. Ann. She saw him. Her note indicates that the location of the abnormalities is in the spleen, and she stated that this is not an organ that is amenable to biopsy. The plan is CT scan of the chest to complete evaluation of occult malignancy. There was no lymphadenopathy and no B symptoms and the CBC and CMP within normal limits. She discussed with him that he has no symptoms. There is mural thickening and sub- centimeter lymph node. That is dealing with diverticulitis. The patient also had a colonoscopy a few years back and it was negative. She recommended repeat endoscopy after patient heals with the diverticulitis. The oncology team will be seeing the patient tomorrow. Today on the examination, his vital signs are stable. Blood pressure elevation is associated with the IV running at this time, as he is still on an easy diverticular disease diet to rest his colon. Otherwise, his physical exam shows that his HEENT was negative. Neck was supple. No lymphadenopathy. Trachea midline. Chest was clear to auscultation and percussion. No wheezes. No rhonchi. HEART: PMI was in the fifth intercostal space with normal S1, S2. No gallop. The abdomen is soft, with positive bowel sounds. The left lower quadrant tenderness has significantly improved. Extremities have no edema. Neurologically he is stable, able to ambulate. No lateralizing sign. ASSESSMENT: 1. Acute diverticular disease of the sigmoid colon, currently treated with antibiotic. 2. 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 PLAN: Patient probably will have a CT scan of the chest as ordered by Oncology to complete evaluation of malignancy. Subsequently tomorrow, if the patient is improved regarding the acute diverticulitis, we will continue and advance to the diet and he probably will be discharged home to be followed by Oncology/Hematology as well and myself. MMODL / IJN: [id number] /
[2018-11-17] MEDS: SODIUM CHLORIDE 0.9% 1,000 ML IV SCH (21:09)
[2018-11-17] MEDS: PRAVASTATIN SODIUM 20 MG TAB PO SCH (22:44)
[2018-11-17] MEDS: LEVOFLOXACIN 750MG-D5W PMX 750 MG in DEXTROSE/WATER 1 150ML.BAG IVPB SCH (23:20)
[2018-11-18] MEDS: metroNIDAZOLE-NS PMX 500 MG in SALINE 1 100ML.BAG IVPB SCH ×3 (01:18→13:14)
[2018-11-18] MEDS: SODIUM CHLORIDE 0.9% 1,000 ML IV SCH (05:43)
[2018-11-18] MEDS: LISINOPRIL-HCTZ 10-12.5 MG 1 EACH TAB PO SCH (09:27)
[2018-11-18] MEDS: ASPIRIN 81 MG PO SCH (09:27)
[2018-11-18] MEDS: ENOXAPARIN 40 MG/0.4 ML SYRINGE SQ SCH (09:27)
[2018-11-18] MEDS: CHOLECALCIFEROL 1,000 UNIT TAB PO SCH (09:27)
[2018-11-18] MEDS: ASCORBIC ACID 500 MG TAB PO SCH (09:27)
[2018-11-18] MEDS: METOPROLOL TARTRATE 25 MG TAB PO SCH (09:28)
--- NOTE | 2018-11-18 13:24 | P.DS ---
Providers Date of admission: 11/13/18 20:43 Expected date of discharge: 11/18/18 ([place]valdo) Attending physician: Nikhil Riley Consults: 11/13/18 20:41 Consult Physician Urgent Consulting Provider: Chema Ryder Consult Reason/Comments: Diverticulitis Do you want consulting provider notified?: Yes 11/17/18 09:57 Consult Physician Urgent Consulting Provider: Zackery Ann Consult Reason/Comments: evaluate for mult lesions on liver Do you want consulting provider notified?: Yes Primary care physician: Nikhil Riley This is a dictation on discharge summary date of service 11/18/2018. Final diagnosis acute diverticulitis of the sigmoid. #2 multiple multifocal nodular density in the spleen unknown etiology no other diagnostic criteria has been present with a computed tomography scan of the abdomen, CT of the chest ultrasound of the spleen, and MRI of the spleen however all of them indicating the nodular density and negate hemangioma. Patient presentation the ER: Patient seen in the office on Friday and sent for computed tomography scan of the abdomen due to suspicious of acute diverticulitis. Subsequently patient send the from the computed tomography scan to the emergency room, patient was admitted to the hospital with IV antibiotic and rest for the bowel. Patient admitted by Dr. Gary Magallon, consulted Dr. ryder the surgeon. Hospital course: Patient has leukocytosis on admission, and he has history of hypertension hyperlipidemia. His laboratory was indicating his white count 11.3 with the chemistry was normal and normal renal function. He had also clinically left lower quadrant pain which is resolved at this time as well as his white count improved to 6.2. Hemoglobin was 15 and the chemistry was normal. Patient started on clear liquid diet subsequently advanced to soft diet and today he is able to go to the bathroom with no pain and resolved all the pain of the abdomen. Extremities no edema. Pulses. He was on also DVT prophylaxis however he is ambulating. No neurological deficit on exam on discharge. On exam on discharge. Patient's conscious alert oriented 3 ambulatory. HEENT normal and neck was supple no JVD no lymphadenopathy. Chest was clear to auscultation percussion. Heart was regular sinus rhythm. Abdomen was soft positive bowel sounds extremities no edema His vital signs on discharge temperature 98.0 pulse 65 respiratory rate 15 and blood pressure 146/82 and pulse ox 98%. Assessment: Patient stable general condition with improvement of the pain as well as the white cells improved. Patient already had the medication which prescribed on last Friday which is Cipro 500 mg twice a day for 5 days as well as he had Flagyl 500 mg every 8 hours for 5 days patient already received these medication and he will continue what he bought already for 5 days. Follow-up on Friday in my office. Follow-up with Dr. Ann one week and follow-up with Dr. ryder in 1 week with the future plan for colonoscopy in 6 weeks and possible biopsy to clarify the event of the spleen abnormalities. Patient also will be followed for these abnormalities as well by Dr. ann oncology hematology. Patient Condition at Discharge: Stable Plan - Discharge Summary Discharge Rx Participant: Yes New Discharge Prescriptions: Continue Metoprolol Tartrate [Lopressor] 25 mg PO BID Cholecalciferol [Vitamin D3] 1,000 unit PO DAILY Pravastatin Sodium [Pravachol] 20 mg PO HS Lisinopril-Hctz 10-12.5 mg [Zestoretic 10-12.5] 1 tab PO Q48H Aspirin EC [Ecotrin Low Dose] 81 mg PO DAILY Ascorbic Acid [Vitamin C] 1,000 mg PO DAILY Discharge Medication List Ascorbic Acid [Vitamin C] 1,000 mg PO DAILY 11/13/18 [History] Aspirin EC [Ecotrin Low Dose] 81 mg PO DAILY 11/13/18 [History] Cholecalciferol [Vitamin D3] 1,000 unit PO DAILY 11/13/18 [History] Lisinopril-Hctz 10-12.5 mg [Zestoretic 10-12.5] 1 tab PO Q48H 11/13/18 [History] Metoprolol Tartrate [Lopressor] 25 mg PO BID 11/13/18 [History] Pravastatin Sodium [Pravachol] 20 mg PO HS 11/13/18 [History] Follow up Appointment(s)/Referral(s): Nikhil Riley MD [Primary Care Provider] - 1-2 days Chema Ryder DO [Doctor of Osteopathic Medicine] - 1 Week Zackery Ann MD [STAFF PHYSICIAN] - 1 Week
--- NOTE | 2018-11-18 13:36 | P.PN ---
Subjective Progress Note Date: 11/18/18 Principal diagnosis: splenic lesions In f/u pt feels well, no c/o on a 14 point ROS, abd discomfort is nearly gone, no bloody or watery stool Objective - Vital Signs Vital signs: Vital Signs Temp 98.0 F 11/18/18 00:55 Pulse 65 11/18/18 00:55 Resp 15 11/18/18 00:55 BP 146/82 11/18/18 00:55 Pulse Ox 98 11/18/18 00:55 Intake & Output 11/17/18 11/18/18 11/18/18 18:59 06:59 18:59 Intake Total 500 540 Balance 500 540 Intake: Oral 500 540 Other: Voiding Method Toilet # Voids 4 1 - Constitutional General appearance: Present: average body habitus, cooperative, no acute distress - EENT Eyes: Present: anicteric sclerae ( ), EOMI ENT: Present: hearing grossly normal - Neck Details: No cervical, supraclavicular, axillary, inguinal, posterior popliteal adenopathy, no splenomegaly Neck: Absent: lymphadenopathy - Cardiovascular Heart sounds: normal: S1, S2 - Gastrointestinal General gastrointestinal: Present: normal bowel sounds, soft. Absent: absent bowel sounds, decreased bowel sounds, distended, hepatomegaly, hyperactive bowel sounds, organomegaly, rigid, scaphoid, splenomegaly, tenderness, umbilical hernia, ventral hernia - Integumentary Integumentary: Present: normal turgor - Neurologic Neurologic: Present: CNII-XII intact - Musculoskeletal Musculoskeletal: Present: strength equal bilaterally - Psychiatric Psychiatric: Present: A&O x's 3, appropriate affect, intact judgment & insight - Labs CBC & Chem 7: 11/17/18 00:48 11/17/18 06:55 Labs: Microbiology - Last 24 Hours (Table) 11/13/18 20:35 Blood Culture - Preliminary Blood No Growth after 96 hours - Imaging and Cardiology CT scan - chest: report reviewed Assessment and Plan (1) Splenic lesion Narrative/Plan: CT chest has no abnormalities or suspicions for occult malignancy, the only location of any abnormalities is within the spleen. CBC,CMP all WNL, pt has no other symptoms. No biopsy can be performed. Again, performed thorough lymph node exam with no adenopathy palpated. Discussed with pt immediate reporting of any new or unusual symptoms, B- symptoms. PCP will follow and pt can be referred back if there are any changes in laboratory values or physical exam that are suspicious. Follow-up MRI of the spleen in 3 months. Proceed with colonoscopy as planned. Pt and verbalized understanding plan Current Visit: Yes Status: Acute Priority: High Code(s): D73.9 - DISEASE OF SPLEEN, UNSPECIFIED SNOMED Code(s): 854948697181919
--- NOTE | 2018-11-18 15:04 | P.PN ---
Subjective Progress Note Date: 11/18/18 He states he's feeling well today. He had no acute events overnight. Pain resolved. he denies any blood in his stool. Objective - Vital Signs Vital signs: Vital Signs Temp 98.0 F 11/18/18 00:55 Pulse 65 11/18/18 00:55 Resp 15 11/18/18 00:55 BP 146/82 11/18/18 00:55 Pulse Ox 98 11/18/18 00:55 Intake & Output 11/17/18 11/18/18 11/18/18 18:59 06:59 18:59 Intake Total 500 540 Balance 500 540 Intake: Oral 500 540 Other: Voiding Method Toilet # Voids 4 1 - Constitutional General appearance: Present: cooperative - Respiratory Details: nonlabored - Cardiovascular Rhythm: regular - Gastrointestinal Gastrointestinal Comment(s): S/NT./ND - Psychiatric Psychiatric: Present: A&O x's 3 - Labs CBC & Chem 7: 11/17/18 00:48 11/17/18 06:55 Labs: Microbiology - Last 24 Hours (Table) 11/13/18 20:35 Blood Culture - Preliminary Blood No Growth after 96 hours Assessment and Plan Assessment: Acute uncomplicated diverticulitis Plan: Patient is on antibiotics. Low residue diet at home. Once his pain is resolved and is tolerating his diet he may be discharged from a surgical standpoint and follow up in 6 weeks for colonoscopy. Patient is following up with oncology regarding splenic mass
[2018-11-18 15:17] VITALS: BP 149/79; PULSE 71; RESP 16; TEMP 97.8
== END 2018-11-18 16:00 ==
LOC: EC 19:11 → 4SSUR 20:43
PROVIDERS: ADMIT Internal Medicine; ATTEND Internal Medicine
DX: K57.32 Diverticulitis of large intestine without perforation or abscess without bleeding (principal); D73.89 Other diseases of spleen; I11.9 Hypertensive heart disease without heart failure; E78.5 Hyperlipidemia, unspecified; I25.10 Atherosclerotic heart disease of native coronary artery without angina pectoris; Z79.82 Long term (current) use of aspirin; Z79.899 Other long term (current) drug therapy; Z82.49 Family history of ischemic heart disease and other diseases of the circulatory system
CPT/HCPCS: 96361 ×2; 96365 ×2; 96366 ×5; 96367 ×2; 96372 ×3; 99285; 36415 ×2; 80053; 80048; 83605; 83615; 83690; 85025 ×3; 87040; 76705; 71260; 74177; 74183; G0378 ×6; J1650 ×3; J1956 ×5; A9585; Q9967 ×2

== ENCOUNTER → 2019-02-08 | Outpatient (CLI) | payer BC | END | disposition home or self-care (01) | LOC: RADMRIMAIN 10:26 | PROVIDERS: ATTEND Internal Medicine Hematology & Oncology | DX: Z53.9 Procedure and treatment not carried out, unspecified reason (principal) ==

== ENCOUNTER 2019-02-11 06:39 | Day surgery (SDC) | payer BC ==
[2019-02-09 10:57] VITALS: BMI 28.3
[~2019-02-11 06:39] MED LIST: LACTATED RINGERS 1,000 ML IV SCH; LIDOCAINE 1% 20 ML VIAL (10MG/ML) FOR IV START INTRADERMA PRN
[2019-02-11 07:11] VITALS: RESP 18
[2019-02-11 07:14] VITALS: TEMP 98
[2019-02-11] MEDS ORDERED: LACTATED RINGERS 1,000 ML IV ONE ×2 (07:18)
[2019-02-11] MEDS ORDERED: PROPOFOL 10 MG/ML 20 ML VIAL IV ONE (07:25)
--- NOTE | 2019-02-11 07:54 | P.OP ---
Date of Procedure: 02/11/19 Preoperative Diagnosis: Diverticulitis Postoperative Diagnosis: Sigmoid colitis Diverticulosis Procedure(s) Performed: Colonoscopy with biopsy Anesthesia: MAURO Surgeon: Chema Ryder Condition: stable Disposition: same day Indications for Procedure: This is a 63-year-old male who previously been in the hospital for acute diver ticulitis. Discussed the risks benefits and alternatives to colonoscopy after resolution of his diverticulitis. Risks including bleeding infection damage shunting tissue need further operation perforation were discussed patient stated he understood agreed and consented informed consent was obtained Description of Procedure: Patient was brought into the Endo suite placed in left lateral decubitus position underwent sedation per department of anesthesia timeout performed correct patient correct procedure correct site was verified rectal exam was performed no gross abnormalities were noted scope was passed from the rectum to the cecum with ease and slowly withdrawn being sure to visualize all noyola of the colon on the way out. There were sigmoid diverticuli noted there was also mild amount of inflammation within the sigmoid colon consistent with his history of diverticulitis biopsy was taken. Scope was then withdrawn through the rectum and no abnormalities were noted. Patient tolerated the procedure well there are no apparent complications
[2019-02-11 08:11] VITALS: BP 157/78; PULSE 67
== END 2019-02-11 08:21 | disposition home or self-care (01) ==
LOC: ORWHC2ENDO 06:39
PROVIDERS: ATTEND Student in an Organized Health Care Education/Training Program
DX: K52.9 Noninfective gastroenteritis and colitis, unspecified (principal); K57.30 Diverticulosis of large intestine without perforation or abscess without bleeding; I10 Essential (primary) hypertension; E78.5 Hyperlipidemia, unspecified; Z79.82 Long term (current) use of aspirin; Z79.899 Other long term (current) drug therapy; Z83.3 Family history of diabetes mellitus; Z82.49 Family history of ischemic heart disease and other diseases of the circulatory system
CPT/HCPCS: 88305; 45380; J2704

== ENCOUNTER → 2019-02-15 | Outpatient (CLI) | payer BC ==
--- NOTE | 2019-02-15 11:49 | MR ---
MR abdomen with and without contrast HISTORY: Splenic masses Multiplanar multisequence and postcontrast images obtained through the abdomen following 7.5 cc Gadav ist IV Correlation to prior MR abdomen 11/16/2018, CT chest 11/17/2018 Multiple hypointense foci seen within the spleen on postcontrast images are less conspicuous than on previous exam on immediate postcontrast images, and on delayed images, focal hyperintensities are not ed similar to prior exam, there is no splenomegaly. Lesions are best demonstrated approximately 3 min [place] delay following intravenous contrast administration within the spleen. 2 larger lesions on axial image #299 of series 7 and L1 on delayed postcontrast images shows anterior lesion measures 12 mm whe re on previous exam it measured approximately 15 to 16 mm. More inferiorly there is a lesion measurin g 12 mm on axial image 354 which measures approximately 14 mm on prior exam. No abnormal T2 signal. T here are approximately 14 lesions present, approximately 12 lesions seen on prior. There is no signif icant interval change The pancreas, adrenal glands, kidneys, gallbladder, and liver show no significant interval change. No retroperitoneal adenopathy or ascites. Aorta shows normal caliber. Lung bases show no effusion. Loss of signal on out of phase imaging within the liver is compatible with underlying hepatic steatosis. IMPRESSION: Lesions seen within the spleen have changed slightly in the interval, at least 2 lesions are smaller in size. Differences in number of lesions could be at least in part technical
== END | disposition home or self-care (01) ==
LOC: RADMRIMAIN 05:58
PROVIDERS: ATTEND Internal Medicine Hematology & Oncology
DX: D73.89 Other diseases of spleen (principal)
CPT/HCPCS: 74183; A9585

== ENCOUNTER → 2019-04-27 | Outpatient (CLI) | payer BC ==
--- NOTE | 2019-04-27 10:21 | MR ---
EXAMINATION TYPE: MR abdomen wo/w con DATE OF EXAM: 04/27/2019 COMPARISON: 02/15/2019 HISTORY: spleenic lesion CONTRAST: Standard multiplanar, multisequence MRI departmental protocol utilizing 7.5 mL intravenous Gadavist g adolinium contrast. FINDINGS: IMPRESSION: Numerous enhancing lesions within the spleen are stable relative the prior exam. The largest measures 16 mm. Approximately 14 lesions present. The pancreas, adrenal glands, kidneys, gallbladder, and liver show no significant interval change. No retroperitoneal adenopathy or ascites. Aorta shows normal caliber. Lung bases show no effusion. Loss of signal on out of phase imaging within the liver is compatible with underlying hepatic steatosis. Fat-containing periumbilical hernia noted. [place]ff hypertrophic and degenerative change of the spine. Facet arthropathy noted. Suspect a vertebral body hemangioma within the lower thoracic spine IMPRESSION: 1. Stable enhancing splenic lesions. Differential diagnosis includes flash hemangioma, multifocal spl enic hamartoma, metastases, and inflammatory or infectious etiologies.
== END | disposition home or self-care (01) ==
LOC: RADMRIMAIN 08:39
PROVIDERS: ATTEND Internal Medicine Hematology & Oncology
DX: D73.89 Other diseases of spleen (principal)
CPT/HCPCS: 74183; A9585

== ENCOUNTER → 2019-07-06 | Outpatient (CLI) | payer BC ==
[2019-07-06 08:23] LABS: Basophils % (A) 1 %; Eosinophils # (A) 0.3 k/uL (0-0.7); Eosinophils % (A) 4 %; HCT 47.5 % (39.0-53.0); HGB 16.3 gm/dL (13.0-17.5); Lymphocytes # (A) 1.6 k/uL (1.0-4.8); Lymphocytes % (A) 25 %; MCHC 34.2 g/dL (31.0-37.0); MCV 87.6 fL (80.0-100.0); Mean Platelet Volume 6.5; Monocytes # (A) 0.4 k/uL (0-1.0); Monocytes % (A) 7 %; Neutrophils # (A) 3.9 k/uL (1.3-7.7); Neutrophils % (A) 62 %; Platelet Count 258 k/uL (150-450); RBC 5.42 m/uL (4.30-5.90); RDW 12.1 % (11.5-15.5); WBC 6.4 k/uL (3.8-10.6)
[2019-07-06 09:38] LABS: Erythrocyte Sedimentation Rate 4 mm/hr (0-15)
[2019-07-06 11:52] LABS: African American GFR (CKD) 110.2 (60.0-200.0); Albumin 4.3 g/dL (3.80-4.90); Albumin/Globulin Ratio 2.87 (1.60-3.17); Anion Gap 7.8 mmol/L (4.00-12.00); Calcium 9.4 mg/dL (8.7-10.3); Carbon Dioxide 22.2 mmol/L (21.6-31.8); Chol/HDL Ratio 3.67; Globulin 1.5 g/dL (1.6-3.3); LDL Cholesterol,Calculated 90.8 mg/dL (0.0-131.0); Potassium 4.6 mmol/L (3.5-5.5); Total Bilirubin 0.7 mg/dL (0.3-1.2); Total Protein 5.8 g/dL (6.2-8.2); VLDL Calculation 21.2 mg/dL (5.00-40.00)
== END | disposition home or self-care (01) ==
LOC: LABWHC1 07:35
PROVIDERS: ATTEND Internal Medicine
DX: Z00.00 Encounter for general adult medical examination without abnormal findings (principal); E78.5 Hyperlipidemia, unspecified; I10 Essential (primary) hypertension; N40.0 Benign prostatic hyperplasia without lower urinary tract symptoms; E87.8 Other disorders of electrolyte and fluid balance, not elsewhere classified
CPT/HCPCS: 36415; 80053; 80061; 82550; 84153; 85025; 85652; 86140

== ENCOUNTER → 2019-10-26 | Outpatient (CLI) | payer BC ==
--- NOTE | 2019-10-26 22:18 | MR ---
EXAMINATION TYPE: MR abdomen wo/w con DATE OF EXAM: 10/26/2019 COMPARISON: Prior MRI abdomen April 27, 2019 and older studies. HISTORY: Splenic lesion CONTRAST: Standard multiplanar, multisequence MRI departmental protocol utilizing 7.5 mL intravenous Gadavist g adolinium contrast. FINDINGS: Spleen: Spleen is normal in size. The spleen remains fairly isointense on T1 and T2-weighted images. Dynamic postcontrast images show some heterogeneity initially with multiple round well-defined foci o f enhancement on the more delayed images. For reference 8 mm focus posteriorly image 354 series 701. Overall these lesions are felt to continue to diminish in size from prior abdominal MRI studies. Other: Some atelectatic change in the posterior lung bases is thought present. Contracted gallbladder is seen. The liver, pancreas, and both adrenal glands are thought within normal limits. There is no concerning renal mass or hydronephrosis. No suspicious bowel dilatation. No abdominal aortic aneurysm . No abdominal ascites. No greater than 1 cm abdominal adenopathy. Slight scoliotic curvature in the spine with multilevel spurring. IMPRESSION: Redemonstration of round well-defined enhancing lesion seen best on delayed postcontrast MRI scattered throughout the spleen. They continue to diminish in size from prior study suggesting po sitive treatment response or benign etiology. Clinical correlation advised.
== END | disposition home or self-care (01) ==
LOC: RADMRIMAIN 09:37
PROVIDERS: ATTEND Internal Medicine Hematology & Oncology
DX: D73.89 Other diseases of spleen (principal)
CPT/HCPCS: 74183; A9585

== ENCOUNTER → 2020-07-11 | Outpatient (CLI) | payer BC ==
[2020-07-11 09:35] LABS: Basophils # (A) 0.1 k/uL (0-0.2); Basophils % (A) 2 %; Eosinophils # (A) 0.3 k/uL (0-0.7); Eosinophils % (A) 4 %; HCT 51.3 % (39.0-53.0); HGB 17.4 gm/dL (13.0-17.5); Lymphocytes # (A) 1.8 k/uL (1.0-4.8); Lymphocytes % (A) 27 %; MCH 30.2 pg (25.0-35.0); MCHC 33.8 g/dL (31.0-37.0); MCV 89.2 fL (80.0-100.0); Monocytes # (A) 0.5 k/uL (0-1.0); Monocytes % (A) 8 %; Neutrophils # (A) 3.9 k/uL (1.3-7.7); Neutrophils % (A) 58 %; Platelet Count 190 k/uL (150-450); RBC 5.76 m/uL (4.30-5.90); RDW 12.4 % (11.5-15.5); WBC 6.7 k/uL (3.8-10.6)
[2020-07-11 12:43] LABS: African American GFR (CKD) 104.2 (60.0-200.0); Albumin 4.3 g/dL (3.80-4.90); Albumin/Globulin Ratio 2.53 (1.60-3.17); Anion Gap 8.3 mmol/L (4.00-12.00); BUN/Creat Ratio 18.89 Ratio (12.00-20.00); Calcium 9.8 mg/dL (8.7-10.3); Carbon Dioxide 26.7 mmol/L (21.6-31.8); Chol/HDL Ratio 3.61; Globulin 1.7 g/dL (1.6-3.3); LDL Cholesterol,Calculated 89.4 mg/dL (0.0-131.0); Non-African American GFR(CKD) 89.9 (60.0-200.0); Potassium 4.3 mmol/L (3.5-5.5); Prostate Specific Antigen 0.6 ng/mL (0.0-4.5); Total Bilirubin 0.8 mg/dL (0.3-1.2); VLDL Calculation 25.6 mg/dL (5.00-40.00)
[2020-07-11 16:44] LABS: Erythrocyte Sedimentation Rate 1 mm/Hr (0-20)
== END | disposition home or self-care (01) ==
LOC: LABWHC1 07:32
PROVIDERS: ATTEND Internal Medicine
DX: Z00.00 Encounter for general adult medical examination without abnormal findings (principal); E78.6 Lipoprotein deficiency; E78.5 Hyperlipidemia, unspecified
CPT/HCPCS: 36415; 80053; 80061; 82550; 84153; 85025; 85652

== ENCOUNTER → 2021-02-16 | Outpatient (CLI) | payer BC ==
--- NOTE | 2021-02-16 13:31 | XR ---
EXAMINATION TYPE: XR chest 2V DATE OF EXAM: 02/16/2021 COMPARISON: CT chest 11/17/2018 HISTORY: Cystic dry cough TECHNIQUE: Frontal and lateral views of the chest are obtained. FINDINGS: There is no focal air space opacity, pleural effusion, or pneumothorax seen. The cardiac silhouette size is within normal limits. Strand-like densities are present at the posterior lung base s. Findings are likely food service representative of scar or atelectasis. There is biapical pleural thickening. The osseous structures are intact, old posterior right rib fractures noted. IMPRESSION: No acute cardiopulmonary process.
== END | disposition home or self-care (01) ==
LOC: RADXRMAIN 10:18
PROVIDERS: ATTEND Internal Medicine
DX: R05 Cough (principal)
CPT/HCPCS: 71046

== ENCOUNTER → 2021-05-22 | Outpatient (CLI) | payer BC ==
--- NOTE | 2021-05-22 12:45 | US ---
EXAMINATION TYPE: US venous doppler duplex UE LT DATE OF EXAM: 05/22/2021 COMPARISON: NONE CLINICAL HISTORY: 65-year-old male M25.52 Pain in elbow. TECHNIQUE: Grayscale, color doppler, spectral doppler imaging performed of the deep veins of the upp er extremities. SIDE PERFORMED: left FINDINGS: There is normal flow, compensability and vascular waveforms. Left Arm: Negative for DVT IMPRESSION: No evidence for DVT within the left upper extremity.
[2021-05-22 13:14] LABS: African American GFR (CKD) >90 (>60 ml/min/1.73 sqM); Anion Gap 10 mmol/L; Blood Urea Nitrogen 12 mg/dL (9-20); Calcium 10.5 mg/dL (8.4-10.2); Carbon Dioxide 21 mmol/L (22-30); Chloride 106 mmol/L (98-107); Glucose 112 mg/dL (74-99); Non-African American GFR(CKD) >90 (>60 ml/min/1.73 sqM); Potassium 4.3 mmol/L (3.5-5.1); Sodium 137 mmol/L (137-145)
[2021-05-22 13:24] LABS: Basophils # (A) 0.1 k/uL (0-0.2); Basophils % (A) 1 %; Eosinophils # (A) 0.4 k/uL (0-0.7); Eosinophils % (A) 5 %; HCT 48.8 % (39.0-53.0); HGB 16.7 gm/dL (13.0-17.5); Lymphocytes # (A) 1.9 k/uL (1.0-4.8); Lymphocytes % (A) 26 %; MCH 30.5 pg (25.0-35.0); MCHC 34.2 g/dL (31.0-37.0); MCV 89.2 fL (80.0-100.0); Mean Platelet Volume 7.9; Monocytes # (A) 0.5 k/uL (0-1.0); Monocytes % (A) 7 %; Neutrophils # (A) 4.3 k/uL (1.3-7.7); Neutrophils % (A) 59 %; Platelet Count 245 k/uL (150-450); RBC 5.47 m/uL (4.30-5.90); WBC 7.3 k/uL (3.8-10.6)
== END | disposition home or self-care (01) ==
LOC: RADUSWWP 11:52
PROVIDERS: ATTEND Internal Medicine
DX: M25.522 Pain in left elbow (principal)
CPT/HCPCS: 80048; 85025; 85379

== ENCOUNTER → 2021-07-16 | Outpatient (CLI) | payer BC ==
[2021-07-16 11:04] LABS: Basophils # (A) 0.07 X 10*3/uL (0.00-0.10); Eosinophils # (A) 0.24 X 10*3/uL (0.04-0.35); Eosinophils % (A) 3.3 %; HGB 16.3 g/dL (13.0-17.0); Lymphocytes # (A) 1.85 X 10*3/uL (0.90-5.00); Lymphocytes % (A) 25.2 %; MCH 28.9 pg (27.0-32.0); MCHC 33.3 g/dL (32.0-37.0); MCV 86.9 fL (80.0-97.0); Mean Platelet Volume 11.1 fL (9.5-12.2); Monocytes % (A) 9.5 %; Neutrophils # (A) 4.38 X 10*3/uL (1.80-7.70); Neutrophils % (A) 59.5 %; Platelet Count 218 X 10*3/uL (140-440); RBC 5.64 X 10*6/uL (4.40-5.60); RDW 12.3 % (11.5-14.5); WBC 7.35 X 10*3/uL (4.50-10.00)
[2021-07-16 13:52] LABS: ALT 25 U/L (10-49); AST 22 U/L (14-35); African American GFR (CKD) 112.2 (60.0-200.0); Albumin 4.3 g/dL (3.8-4.9); Albumin/Globulin Ratio 2.15 (1.60-3.17); Alkaline Phosphatase 68 U/L (41-126); BUN/Creat Ratio 17.97 Ratio (12.00-20.00); Blood Urea Nitrogen 13.3 mg/dL (9.0-27.0); Carbon Dioxide 22.9 mmol/L (21.6-31.8); Chloride 106 mmol/L (96-109); Chol/HDL Ratio 4.13 Ratio; Creatine Kinase 82 U/L (35-257); Glucose 138 mg/dL (70-110); LDL Cholesterol,Calculated 101.8 mg/dL (0.0-131.0); Magnesium 2.2 mg/dL (1.5-2.4); Non-African American GFR(CKD) 96.8 (60.0-200.0); Phosphorus 3.4 mg/dL (2.4-5.1); Potassium 4.6 mmol/L (3.5-5.5); Sodium 142 mmol/L (135-145); Total Protein 6.3 g/dL (6.2-8.2)
[2021-07-16 14:45] LABS: Erythrocyte Sedimentation Rate 2 mm/Hr (0-20)
[2021-07-16 15:02] LABS: C Reactive Protein <0.30 mg/dL (0.00-0.80)
== END | disposition home or self-care (01) ==
LOC: LABWHC1 07:12
PROVIDERS: ATTEND Internal Medicine
DX: Z00.00 Encounter for general adult medical examination without abnormal findings (principal); E55.9 Vitamin D deficiency, unspecified; D64.9 Anemia, unspecified; N40.0 Benign prostatic hyperplasia without lower urinary tract symptoms; E78.5 Hyperlipidemia, unspecified; I10 Essential (primary) hypertension
CPT/HCPCS: 36415; 80053; 80061; 82306; 82550; 83036; 83735; 84100; 84153; 84443; 85025; 85652; 86140

== ENCOUNTER → 2021-07-30 | Outpatient (CLI) | payer BC, MEDICARE ==
--- NOTE | 2021-07-31 10:30 | ECHOF ---
Referral Reason:I25.9 Chronic ischemic heart disease, unspecified MEASUREMENTS -------- HEIGHT: 165.1 cm WEIGHT: 96.2 kg BP: 158/82 IVSd: 1.2 cm (0.6 - 1.1) LVIDd: 3.7 cm (3.9 - 5.3) LVPWd: 1.2 cm (0.6 - 1.1) EDV(Teich): 58 ml IVSs: 1.8 cm LVIDs: 2.6 cm LVPWs: 1.6 cm %IVS Thck: 42 % ESV(Teich): 26 ml EF(Teich): 56 % %FS: 29 % SV(Teich): 33 ml LA Diam: 2.8 cm (2.7 - 3.8) RVIDd: 2.9 cm (< 3.3) LALs A4C: 4.9 cm LAAs A4C: 16.0 cm LAESV A-L A4C: 44 ml LAESV MOD A4C: 41 ml LALs A2C: 5.5 cm LAAs A2C: 16.0 cm LAESV A-L A2C: 39 ml LAESV MOD A2C: 39 ml LAESV(A-L): 44 ml LAESV Index (A-L): 21.59 ml/m Ao Diam: 3.0 cm (2.0 - 3.7) EPSS: 0.6 cm MV E [place]: 0.55 m/s MV DecT: 351 ms MV Dec [place]: 1.6 m/s MV A [place]: 0.82 m/s MV E/A Ratio: 0.66 MV PHT: 102 ms AV Vmax: 1.65 m/s AV maxP.95 mmHg TR Vmax: 2.48 m/s TR maxP.66 mmHg RAP: 5.00 mmHg RVSP: 29.66 mmHg MV EF SLOPE: 26.51 mm/s (70 - 150) MV EXCURSION: 14.58 mm (> 18.000) FINDINGS -------- Sinus rhythm. This was a technically adequate study. The left ventricular size is normal. There is borderline concentric left ventricular hypertrophy. Overall left ventricular systolic function is normal with, an EF between 60 - 65 %. The right ventricle is normal in size. The left atrium is normal in size. The right atrium is normal in size. Interatrial and interventricular septum intact. The aortic valve is trileaflet, and appears structurally normal. No aortic stenosis or regurgitation. There is trace to mild mitral regurgitation. Mild tricuspid regurgitation present. Right ventricular systolic pressure is normal at < 35 mmHg. Trace/mild (physiologic) pulmonic regurgitation. The aortic root size is normal. Normal inferior vena cava with normal inspiratory collapse consistent with estimated right atrial pre ssure of 5 mmHg. There is no pericardial effusion. CONCLUSIONS -------- 1. The left ventricular size is normal. 2. There is borderline concentric left ventricular hypertrophy. 3. Overall left ventricular systolic function is normal with, an EF between 60 - 65 %. 4. The aortic valve is trileaflet, and appears structurally normal. No aortic stenosis or regurgitati on. 5. There is trace to mild mitral regurgitation. 6. Mild tricuspid regurgitation present. 7. Trace/mild (physiologic) pulmonic regurgitation. 8. There is no pericardial effusion. SUPERVISOR [employer]: Niya Gan RDCS
== END | disposition home or self-care (01) ==
LOC: RADECHMAIN 13:50
PROVIDERS: ATTEND Internal Medicine
DX: I34.0 Nonrheumatic mitral (valve) insufficiency (principal); I07.1 Rheumatic tricuspid insufficiency; I37.1 Nonrheumatic pulmonary valve insufficiency
CPT/HCPCS: 93306

== ENCOUNTER → 2021-12-06 | Outpatient (CLI) | payer BC, MEDICARE ==
[2021-12-06 11:09] LABS: African American GFR (CKD) 103.3 (60.0-200.0); Anion Gap 11.7 mmol/L (10.00-18.00); BUN/Creat Ratio 15.3 Ratio (12.00-20.00); Blood Urea Nitrogen 13.6 mg/dL (9.0-27.0); Calcium 9.8 mg/dL (8.7-10.3); Carbon Dioxide 22.5 mmol/L (20.0-27.5); Non-African American GFR(CKD) 89.1 (60.0-200.0); Potassium 4.1 mmol/L (3.5-5.5)
== END | disposition home or self-care (01) ==
LOC: LABWHC1 07:02
PROVIDERS: ATTEND Internal Medicine
DX: E11.65 Type 2 diabetes mellitus with hyperglycemia (principal); I10 Essential (primary) hypertension
CPT/HCPCS: 36415; 80048; 83036

== ENCOUNTER 2024-06-27 06:57 | Emergency (ER) | payer BC, MEDICARE ==
--- NOTE | 2024-06-27 07:25 | ED ---
Abdominal Pain HPI - General Chief Complaint: Abdominal Pain Stated Complaint: Abd cramps, chills Time Seen by Provider: 06/27/24 07:02 Source: patient, RN notes reviewed Mode of arrival: ambulatory Limitations: no limitations - History of Present Illness Initial Comments: 68-year-old male presents emergency department complaint abdominal pain, diarrhea and cramping. Patient states that started yesterday afternoon. Patient states has been persistent. He has had slight nausea without vomiting no fever states possible chills. Patient does have a history of hypertension did not take his medications last night or this morning. Patient states she has had prior abdominal hernia no history of appendectomy cholecystectomy or bowel resection. He does admit that he had a history of diverticulitis. No dysuria. Patient offers no other complaints. - Related Data Home Medications Medication Instructions Recorded Confirmed Aspirin EC [Ecotrin Low Dose] 81 mg PO Q48H 11/13/18 02/09/19 Cholecalciferol [Vitamin D3 (25 1,000 unit PO DAILY 11/13/18 02/09/19 Mcg = 1000 Iu)] Lisinopril-Hctz 10-12.5 mg 1 tab PO Q48H 11/13/18 02/09/19 [Zestoretic 10-12.5] Metoprolol Tartrate [Lopressor] 25 mg PO BID 11/13/18 02/09/19 Pravastatin Sodium [Pravachol] 20 mg PO HS 11/13/18 02/09/19 Ascorbic Acid [Vitamin C] 500 mg PO DAILY 02/09/19 02/09/19 Previous Rx's Medication Instructions Recorded Omeprazole [PriLOSEC] 40 mg PO DAILY #14 cap 06/27/24 Ondansetron Odt [Zofran Odt] 4 mg PO Q8HR PRN #10 tab 06/27/24 Allergies Allergy/AdvReac Type Severity Reaction Status Date / Time No Known Allergies Allergy Verified 06/27/24 07:05 Review of Systems ROS Statement: Those systems with pertinent positive or pertinent negative responses have been documented in the HPI. ROS Other: All systems not noted in ROS Statement are negative. Past Medical History Past Medical History: Diabetes Mellitus, Hyperlipidemia, Hypertension Additional Past Medical History / Comment(s): diverticulosis/diverticulitis History of Any Multi-Drug Resistant Organisms: None Reported Past Surgical History: Hernia Repair Past Psychological History: No Psychological Hx Reported Smoking Status: Never smoker Past Alcohol Use History: None Reported Past Drug Use History: None Reported General Exam Limitations: no limitations General appearance: alert, in no apparent distress Head exam: Present: atraumatic, normocephalic, normal inspection Eye exam: Present: normal appearance, PERRL, EOMI. Absent: scleral icterus, conjunctival injection, periorbital swelling ENT exam: Present: normal exam, mucous membranes moist Neck exam: Present: normal inspection, full ROM. Absent: tenderness, meningismus, lymphadenopathy Respiratory exam: Present: normal lung sounds bilaterally. Absent: respiratory distress, wheezes, rales, rhonchi, stridor Cardiovascular Exam: Present: regular rate, normal rhythm, normal heart sounds. Absent: systolic murmur, diastolic murmur, rubs, gallop, clicks GI/Abdominal exam: Present: soft, tenderness, normal bowel sounds. Absent: distended, guarding, rebound, rigid Back exam: Absent: CVA tenderness (R), CVA tenderness (L) Neurological exam: Present: alert, oriented X3, CN II-XII intact Course Vital Signs 06/27/24 06/27/24 06/27/24 06:59 08:17 08:45 Temperature 97.5 F L 98.3 F Pulse Rate 58 L 57 L 24 L Respiratory 18 18 18 Rate Blood Pressure 214/78 187/80 183/75 O2 Sat by Pulse 99 96 99 Oximetry 06/27/24 06/27/24 09:44 10:30 Temperature Pulse Rate 56 L 60 Respiratory 18 18 Rate Blood Pressure 193/88 193/83 O2 Sat by Pulse 100 98 Oximetry Medical Decision Making - Medical Decision Making Was pt. sent in by a medical professional or institution (, PA, HEALTH PROMOTER, urgent care, hospital, or [place] health care facility...) When possible be specific @ -No Did you speak to anyone other than the patient for history (EMS, parent, family, police, friend...)? What history was obtained from this source @ -No Did you review nursing and triage notes (agree or disagree)? Why? @ -I reviewed and agree with nursing and triage notes Were old charts reviewed (outside hosp., previous admission, EMS record, old EKG, old radiological studies, urgent care reports/EKG's, [place] health care facility records)? Report findings @ -No old charts were reviewed Differential Diagnosis (chest pain, altered mental status, abdominal pain women, abdominal pain men, vaginal bleeding, weakness, fever, dyspnea, syncope, headache, dizziness, GI bleed, back pain, seizure, CVA, palpatations, mental health, musculoskeletal)? @ -Differential Abdominal Pain Women: Appendicitis, Cholecystitis, diverticulosis, ischemic bowel, pancreatitis, hepatitis, UTI, gastroenteritis, AAA, incarcerated hernia, bowel obstruction, constipation, inflammatory bowel, hepatitis, peptic ulcer disease, splenic infarction, perforated viscus, vulvitis, ovarian torsion, PID, kidney stone, placenta abruption, this is not meant to be an all-inclusive list EKG interpreted by me (3pts min.). @ -None X-rays interpreted by me (1pt min.). @ -None done CT interpreted by me (1pt min.). @ -CT abdomen pelvis showing evidence of hyperemia of the gastric wall consistent with gastritis. U/S interpreted by me (1pt. min.). @ -None done What testing was considered but not performed or refused? (CT, X-rays, U/S, labs)? Why? @ -None What meds were considered but not given or refused? Why? @ -None Did you discuss the management of the patient with other professionals (prof essionals i.e. , PA, HEALTH PROMOTER, lab, RT, psych nurse, director social welfare, manager intel, teacher, community arts officer, bottle caser)? Give summary @ -No Was smoking cessation discussed for >3mins.? @ -No Was critical care preformed (if so, how long)? @ -No Were there social determinants of health that impacted care today? How? (Homelessness, low income, unemployed, alcoholism, drug addiction, transportation, low edu. Level, literacy, decrease access to med. care, long-term, rehab)? @ -No Was there de-escalation of care discussed even if they declined (Discuss DNR or withdrawal of care, Hospice)? DNR status @ -No What co-morbidities impacted this encounter? (DM, HTN, Smoking, COPD, CAD, Cancer, CVA, ARF, Chemo, Hep., AIDS, mental health diagnosis, sleep apnea, morbid obesity)? @ -None Was patient admitted / discharged? Hospital course, mention meds given and route, prescriptions, significant lab abnormalities, going to OR and other pertinent info. @ -Discharge patient presented for abdominal pain. Patient has enteritis, process unremarkable. Patient CT did not show gastritis type changes on CT. He will follow-up with GI started on omeprazole return parameters sj. Undiagnosed new problem with uncertain prognosis? @ -No Drug Therapy requiring intensive monitoring for toxicity (Heparin, Nitro, Insulin, Cardizem)? @ -No Were any procedures done? @ -No Diagnosis/symptom? @ -Enteritis, gastritis Acute, or Chronic, or Acute on Chronic? @ -Acute Uncomplicated (without systemic symptoms) or Complicated (systemic symptoms)? @ -Complicated Side effects of treatment? @ -No Exacerbation, Progression, or Severe Exacerbation? @ -No Poses a threat to life or bodily function? How? (Chest pain, [place], [place], pneumonia, PE, COPD, DKA, ARF, appy, cholecystitis, CVA, Diverticulitis, Homicidal, Suicidal, threat to staff... and all critical care pts) @ -No - Lab Data Result diagrams: 06/27/24 08:27 06/27/24 08:27 Lab Results 06/27/24 06/27/24 06/27/24 Range/Units 08:27 08:27 08:27 WBC 13.6 H (3.8-10.6) k/uL RBC 5.85 (4.30-5.90) m/uL Hgb 17.3 (13.0-17.5) gm/dL Hct 51.5 (39.0-53.0) % MCV 87.9 (80.0-100.0) fL MCH 29.6 (25.0-35.0) pg MCHC 33.6 (31.0-37.0) g/dL RDW 12.2 (11.5-15.5) % Plt Count 282 (150-450) k/uL MPV 7.6 Neutrophils % 79 % Lymphocytes % 15 % Monocytes % 4 % Eosinophils % 1 % Basophils % 0 % Neutrophils # 10.8 H (1.3-7.7) k/uL Lymphocytes # 2.0 (1.0-4.8) k/uL Monocytes # 0.6 (0-1.0) k/uL Eosinophils # 0.1 (0-0.7) k/uL Basophils # 0.0 (0-0.2) k/uL Sodium 134 L (137-145) mmol/L Potassium 4.4 (3.5-5.1) mmol/L Chloride 104 (98-107) mmol/L Carbon Dioxide 21 L (22-30) mmol/L Anion Gap 9 mmol/L BUN 12 (9-20) mg/dL Creatinine 0.58 L (0.66-1.25) mg/dL Est GFR (CKD-EPI)AfAm >90 (>60 ml/min/1.73 sqM) Est GFR (CKD-EPI)NonAf >90 (>60 ml/min/1.73 sqM) Glucose 134 H (74-99) mg/dL Plasma Lactic Acid [place] 1.6 (0.7-2.0) mmol/L Calcium 9.8 (8.4-10.2) mg/dL Total Bilirubin 0.7 (0.2-1.3) mg/dL AST 24 (17-59) U/L ALT 20 (4-49) U/L Alkaline Phosphatase 58 (38-126) U/L Total Protein 6.7 (6.3-8.2) g/dL Albumin 4.4 (3.5-5.0) g/dL Lipase 102 (23-300) U/L Urine Color Urine Appearance (Clear) Urine pH (5.0-8.0) Ur Specific [place] (1.001-1.035) Urine Protein (Negative) Urine Glucose (UA) (Negative) Urine Ketones (Negative) Urine Blood (Negative) Urine Nitrite (Negative) Urine Bilirubin (Negative) Urine Urobilinogen (<2.0) mg/dL Ur Leukocyte Esterase (Negative) 06/27/24 Range/Units 08:58 WBC (3.8-10.6) k/uL RBC (4.30-5.90) m/uL Hgb (13.0-17.5) gm/dL Hct (39.0-53.0) % MCV (80.0-100.0) fL MCH (25.0-35.0) pg MCHC (31.0-37.0) g/dL RDW (11.5-15.5) % Plt Count (150-450) k/uL MPV Neutrophils % % Lymphocytes % % Monocytes % % Eosinophils % % Basophils % % Neutrophils # (1.3-7.7) k/uL Lymphocytes # (1.0-4.8) k/uL Monocytes # (0-1.0) k/uL Eosinophils # (0-0.7) k/uL Basophils # (0-0.2) k/uL Sodium (137-145) mmol/L Potassium (3.5-5.1) mmol/L Chloride (98-107) mmol/L Carbon Dioxide (22-30) mmol/L Anion Gap mmol/L BUN (9-20) mg/dL Creatinine (0.66-1.25) mg/dL Est GFR (CKD-EPI)AfAm (>60 ml/min/1.73 sqM) Est GFR (CKD-EPI)NonAf (>60 ml/min/1.73 sqM) Glucose (74-99) mg/dL Plasma Lactic Acid [place] (0.7-2.0) mmol/L Calcium (8.4-10.2) mg/dL Total Bilirubin (0.2-1.3) mg/dL AST (17-59) U/L ALT (4-49) U/L Alkaline Phosphatase (38-126) U/L Total Protein (6.3-8.2) g/dL Albumin (3.5-5.0) g/dL Lipase (23-300) U/L Urine Color Light Yellow Urine Appearance Clear (Clear) Urine pH 6.5 (5.0-8.0) Ur Specific [place] 1.023 (1.001-1.035) Urine Protein Trace H (Negative) Urine Glucose (UA) Negative (Negative) Urine Ketones Trace H (Negative) Urine Blood Negative (Negative) Urine Nitrite Negative (Negative) Urine Bilirubin Negative (Negative) Urine Urobilinogen <2.0 (<2.0) mg/dL Ur Leukocyte Esterase Negative (Negative) Disposition Clinical Impression: Enteritis, Gastritis Disposition: HOME SELF-CARE Condition: Stable Instructions (If sedation given, give patient instructions): Gastritis (ED), Diet for Stomach Ulcers and Gastritis (ED) Additional Instructions: Please return to the Emergency Department if symptoms worsen or any other concerns. Prescriptions: Omeprazole [PriLOSEC] 40 mg PO DAILY #14 cap Ondansetron Odt [Zofran Odt] 4 mg PO Q8HR PRN #10 tab PRN Reason: Nausea Is patient prescribed a controlled substance at d/c from ED?: No Referrals: [facility],Clinic [Primary Care Provider] - 1-2 days Dina Morel MD [STAFF PHYSICIAN] - 1-2 days Time of Disposition: 11:13
[2024-06-27] MEDS: SODIUM CHLORIDE 0.9% 1,000 ML IV STA (08:34)
[2024-06-27] MEDS: ONDANSETRON 4 MG/2 ML VIAL IVP STA (08:35)
[2024-06-27] MEDS: KETOROLAC 15 MG/ML 1 ML VIAL IVP STA (08:35)
[2024-06-27 08:49] LABS: Basophils % (A) 0 %; Eosinophils # (A) 0.1 k/uL (0-0.7); Eosinophils % (A) 1 %; HCT 51.5 % (39.0-53.0); HGB 17.3 gm/dL (13.0-17.5); Lymphocytes % (A) 15 %; MCH 29.6 pg (25.0-35.0); MCHC 33.6 g/dL (31.0-37.0); MCV 87.9 fL (80.0-100.0); Mean Platelet Volume 7.6; Monocytes # (A) 0.6 k/uL (0-1.0); Monocytes % (A) 4 %; Neutrophils # (A) 10.8 k/uL (1.3-7.7); Neutrophils % (A) 79 %; Platelet Count 282 k/uL (150-450); RBC 5.85 m/uL (4.30-5.90); RDW 12.2 % (11.5-15.5); WBC 13.6 k/uL (3.8-10.6)
[2024-06-27 09:07] LABS: Appearance,Urine Clear (Clear); Bilirubin,Urine Negative (Negative); Blood,Urine Negative (Negative); Color,Urine Light Yellow; Glucose,Urine (UA) Negative (Negative); Ketones,Urine Trace (Negative); Leukocyte Esterase,Urine Negative (Negative); Nitrite,Urine Negative (Negative); PH, Urine 6.5 (5.0-8.0); Protein,Urine Trace (Negative); Specific Gravity,Urine 1.023 (1.001-1.035); Urobilinogen,Urine <2.0 mg/dL (<2.0)
[2024-06-27 09:26] LABS: AST 24 U/L (17-59); African American GFR (CKD) >90 (>60 ml/min/1.73 sqM); Albumin 4.4 g/dL (3.5-5.0); Alkaline Phosphatase 58 U/L (38-126); Blood Urea Nitrogen 12 mg/dL (9-20); Calcium 9.8 mg/dL (8.4-10.2); Carbon Dioxide 21 mmol/L (22-30); Chloride 104 mmol/L (98-107); Glucose 134 mg/dL (74-99); Non-African American GFR(CKD) >90 (>60 ml/min/1.73 sqM); Total Bilirubin 0.7 mg/dL (0.2-1.3); Total Protein 6.7 g/dL (6.3-8.2)
[2024-06-27 09:49] LABS: ALT 20 U/L (4-49); Anion Gap 9 mmol/L; Lipase 102 U/L (23-300); Potassium 4.4 mmol/L (3.5-5.1); Sodium 134 mmol/L (137-145)
[2024-06-27] MEDS: hydrALAZINE HCL 20 MG/ML 1 ML VIAL IVP STA (10:38)
--- NOTE | 2024-06-27 10:43 | CT ---
EXAMINATION TYPE: CT abdomen pelvis w con DATE OF EXAM: 06/27/2024 10:19 AM COMPARISON: 11/13/2018. CLINICAL INDICATION: Male, 68 years old with history of abdominal pain; Abdominal pain with chills TECHNIQUE: Axial CT abdomen pelvis w con;Sagittal and coronal reformats were created on a separate w orkstation. Contrast used:100 ml mL of Isovue 300 with IV Contrast, (none if empty) Oral contrast used: without Oral Contrast (none if empty) CT DLP: 1224 mGycm, Automated exposure control for dose reduction was used. FINDINGS: LOWER CHEST: Unremarkable ABDOMEN LIVER: Diffusely hypoattenuating parenchyma. GALLBLADDER AND BILE DUCTS: Unremarkable. PANCREAS: Unremarkable. SPLEEN: Hypointense lesion seen on prior imaging on 11/13/2018 and the longer visualized in the spleen . ADRENAL GLANDS: Unremarkable. KIDNEYS AND URETERS: No evidence of hydronephrosis or renal calculus. The ureters are unremarkable. PELVIS BLADDER: No evidence for wall thickening or mass given limitations of exam. REPRODUCTIVE: Prostate is enlarged in size measuring 5.4 cm in transverse dimension. ABDOMEN & PELVIS STOMACH AND BOWEL: There may be mild thickening of the gastric antrum noyola. No evidence of bowel obs truction. Scattered colonic diverticula. PERITONEUM/RETROPERITONEUM: No evidence of pneumoperitoneum or free fluid. VASCULATURE: No evidence of aortic aneurysm. MUSCULOSKELETAL: No acute osseous abnormalities LYMPH NODES: No gross evidence for lymphadenopathy. SOFT TISSUE/ABDOMINAL WALL: Fat-containing umbilical hernia. IMPRESSION: 1. Mild thickening of the gastric antrum wall with hyperemia. Correlate for gastritis otherwise, no evidence for acute abdominal process. 2. Fat-containing umbilical hernia. 3. Hepatic steatosis 4. Colonic diverticulosis. [facility], , 06/27/2024 10:41 AM
[2024-06-27] MEDS: PANTOPRAZOLE 40 MG/10 ML VIAL IVP STA (11:27)
[2024-06-27] MEDS: METOCLOPRAMIDE 5 MG/ML 2 ML VIAL IVP STA (11:27)
[2024-06-27] MEDS: MAG HYDROX/AL HYDROX/SIMETH 30 ML, HYOSCYAMINE ELIXIR 10 ML, LIDOCAINE VISCOUS 2% 10 ML PO STA (11:33)
[2024-06-27 11:48] VITALS: BP 165/72; PULSE 63; RESP 19; TEMP 98.8
== END 2024-06-27 11:49 | disposition home or self-care (01) ==
LOC: EC 06:57
DX: K29.70 Gastritis, unspecified, without bleeding (principal); K52.9 Noninfective gastroenteritis and colitis, unspecified
CPT/HCPCS: 36415; 80053; 83605; 83690; 85025; 81003; 74177; 99284; 96374; 96375 ×4; 96361; J0360; J2765; J2405; J1885; Q9967; J2470

== ENCOUNTER 2024-08-24 11:10 | Emergency (ER) | payer BC, MEDICARE ==
[2024-08-24 11:18] VITALS: TEMP 98.4
--- NOTE | 2024-08-24 11:27 | ED ---
General Adult HPI - General Chief complaint: Allergic Reaction Stated complaint: Swollen tongue, numbness Time Seen by Provider: 08/24/24 11:19 Source: patient Mode of arrival: ambulatory Limitations: no limitations - History of Present Illness Initial comments: Dictation was produced using [employer] dictation software. please excuse any grammatical, word or spelling errors. Chief Complaint: 69-year-old male with tongue swelling History of Present Illness: Patient 69-year-old male presents emergency department tongue swelling at breakfast this morning where he did not eat anything out of the ordinary. Symptoms started around 9 AM when he noticed that his tongue started to feel swollen. States that he is not having any difficulty breathing. Denies any acute rash. Denies any lightheadedness. Patient does not take lisinopril. The ROS documented in this emergency department record has been reviewed and confirmed by me. Those systems with pertinent positive or negative responses have been documented in the HPI. All other systems are other negative and/or noncontributory. - Related Data Home Medications Medication Instructions Recorded Confirmed Aspirin EC [Ecotrin Low Dose] 81 mg PO Q48H 11/13/18 02/09/19 Cholecalciferol [Vitamin D3 (25 1,000 unit PO DAILY 11/13/18 02/09/19 Mcg = 1000 Iu)] Lisinopril-Hctz 10-12.5 mg 1 tab PO Q48H 11/13/18 02/09/19 [Zestoretic 10-12.5] Metoprolol Tartrate [Lopressor] 25 mg PO BID 11/13/18 02/09/19 Pravastatin Sodium [Pravachol] 20 mg PO HS 11/13/18 02/09/19 Ascorbic Acid [Vitamin C] 500 mg PO DAILY 02/09/19 02/09/19 Previous Rx's Medication Instructions Recorded Omeprazole [PriLOSEC] 40 mg PO DAILY #14 cap 06/27/24 Ondansetron Odt [Zofran Odt] 4 mg PO Q8HR PRN #10 tab 06/27/24 Allergies Allergy/AdvReac Type Severity Reaction Status Date / Time No Known Allergies Allergy Verified 08/24/24 11:13 Review of Systems ROS Statement: Those systems with pertinent positive or pertinent negative responses have been documented in the HPI. ROS Other: All systems not noted in ROS Statement are negative. Past Medical History Past Medical History: Diabetes Mellitus, Hyperlipidemia, Hypertension Additional Past Medical History / Comment(s): diverticulosis/diverticulitis History of Any Multi-Drug Resistant Organisms: None Reported Past Surgical History: Hernia Repair Past Psychological History: No Psychological Hx Reported Smoking Status: Never smoker Past Alcohol Use History: None Reported Past Drug Use History: None Reported General Exam - General Exam Comments Initial Comments: PHYSICAL EXAM: General Impression: Alert and oriented x3, not in acute distress HEENT: Normocephalic atraumatic, extra-ocular movements intact, pupils equal and reactive to light bilaterally, mucous membranes moist, swelling to the tongue Cardiovascular: Heart regular rate and rhythm Chest: Able to complete full sentences, no retractions, no tachypnea Abdomen: abdomen soft, non-tender, non-distended, no organomegaly Musculoskeletal: Pulses present and equal in all extremities, no peripheral edema Motor: no focal deficits noted Neurological: CN II-XII grossly intact, no focal motor or sensory deficits noted Skin: Intact with no visualized rashes Psych: Normal affect and mood Limitations: no limitations Course Vital Signs 08/24/24 08/24/24 11:13 14:21 Temperature 98.4 F Pulse Rate 92 93 Respiratory 26 H 18 Rate Blood Pressure 137/74 134/70 O2 Sat by Pulse 96 97 Oximetry - Reevaluation(s) Reevaluation #1: 08/24/24 14:33 Patient evaluated with improvement of angioedema symptoms. Reevaluation #2: 08/24/24 15:16 3:15 PM found to be stable to condition. Symptoms even more improved. Patient stable for discharge. Medical Decision Making - Medical Decision Making Was pt. sent in by a medical professional or institution (, PA, MANAGER OF PRODUCTION, urgent care, hospital, or residential...) When possible be specific @ -No Did you speak to anyone other than the patient for history (EMS, parent, family, police, friend...)? What history was obtained from this source @ -No Did you review nursing and triage notes (agree or disagree)? Why? @ -I reviewed and agree with nursing and triage notes Were old charts reviewed (outside hosp., previous admission, EMS record, old EKG, old radiological studies, urgent care reports/EKG's, residential records)? Report findings @ -No old charts were reviewed Differential Diagnosis (chest pain, altered mental status, abdominal pain women, abdominal pain men, vaginal bleeding, musculoskeletal, weakness, fever, dyspnea, syncope, headache, dizziness, GI bleed, back pain, seizure, CVA, palpatations, mental health)? @ -Hereditary angioedema, lisinopril induced angioedema, allergic reaction EKG interpreted by me (3pts min.). @ -None done X-rays interpreted by me (1pt min.). @ -None done CT interpreted by me (1pt min.). @ -None done U/S interpreted by me (1pt. min.). @ -None done What testing was considered but not performed or refused? (CT, X-rays, U/S, labs)? Why? @ -None What meds were considered but not given or refused? Why? @ -None Was smoking cessation discussed for >3mins.? @ -No Were there social determinants of health that impacted care today? How? (Homelessness, low income, unemployed, alcoholism, drug addiction, transportation, low edu. Level, literacy, decrease access to med. care, care home, rehab)? @ -No Was there de-escalation of care discussed even if they declined (Discuss DNR or withdrawal of care, Hospice)? DNR status @ -No What co-morbidities impacted this encounter? (DM, HTN, Smoking, COPD, CAD, Cancer, CVA, ARF, Chemo, Hep., AIDS, mental health diagnosis, sleep apnea, morbid obesity)? @ -None Was patient admitted / discharged? Hospital course, mention meds given and route, prescriptions, significant lab abnormalities, going to OR and other pertinent info. @ -69-year-old male presents to the emergency department angioedema. After speaking with patient's unclear what caused patient's symptoms. States he has symptoms several hours since arriving to the ER. Vital signs stable. Patient no acute distress. Basic labs obtained showing no acute processes. Patient given tranexamic acid. Patient observed in the emergency department for approximately 4 hours. Patient's symptoms improved. Patient stable for discharge. Given strict return precautions. Advise close follow-up with primary care doctor. Did you discuss the management of the patient with other professionals (professionals i.e. , PA, MANAGER OF PRODUCTION, lab, RT, psych nurse, social insurance adviser, supervisor hand silvering, teacher, real estate utilization officer, nurse case manager)? Give summary @ -No Was critical care preformed (if so, how long)? @ -No Undiagnosed new problem with uncertain prognosis? @ -No Drug Therapy requiring intensive monitoring for toxicity (Heparin, Nitro, Insulin, Cardizem)? @ -No Were any procedures done? @ -No Diagnosis/symptom? Acute, or Chronic, or Acute on Chronic? Uncomplicated (without systemic symptoms) or Complicated (systemic symptoms)? @ -Angioedema Side effects of treatment? @ -No Exacerbation, Progression, or Severe Exacerbation? @ -No Poses a threat to life or bodily function? How? (Chest pain, [place], [place], pneumonia, PE, COPD, DKA, ARF, appy, cholecystitis, CVA, Diverticulitis, Homicidal, Suicidal, threat to staff... and all critical care pts) @ -No - Lab Data Result diagrams: 08/24/24 11:28 08/24/24 11:28 Lab Results 08/24/24 08/24/24 Range/Units 11:28 11:28 WBC 14.6 H (3.8-10.6) k/uL RBC 5.59 (4.30-5.90) m/uL Hgb 17.0 (13.0-17.5) gm/dL Hct 49.4 (39.0-53.0) % MCV 88.3 (80.0-100.0) fL MCH 30.4 (25.0-35.0) pg MCHC 34.4 (31.0-37.0) g/dL RDW 12.8 (11.5-15.5) % Plt Count 230 (150-450) k/uL MPV 7.4 Neutrophils % 68 % Lymphocytes % 18 % Monocytes % 7 % Eosinophils % 5 % Basophils % 1 % Neutrophils # 9.9 H (1.3-7.7) k/uL Lymphocytes # 2.6 (1.0-4.8) k/uL Monocytes # 1.0 (0-1.0) k/uL Eosinophils # 0.7 (0-0.7) k/uL Basophils # 0.1 (0-0.2) k/uL Sodium 137 (137-145) mmol/L Potassium 4.1 (3.5-5.1) mmol/L Chloride 105 (98-107) mmol/L Carbon Dioxide 25 (22-30) mmol/L Anion Gap 7 mmol/L BUN 24 H (9-20) mg/dL Creatinine 0.86 (0.66-1.25) mg/dL Est GFR (CKD-EPI)AfAm >90 (>60 ml/min/1.73 sqM) Est GFR (CKD-EPI)NonAf 89 (>60 ml/min/1.73 sqM) Glucose 82 (74-99) mg/dL Calcium 10.0 (8.4-10.2) mg/dL Disposition Clinical Impression: Angioedema Disposition: HOME SELF-CARE Condition: Good Instructions (If sedation given, give patient instructions): Angioedema (ED) Is patient prescribed a controlled substance at d/c from ED?: No Referrals: [facility],Clinic [Primary Care Provider] - 1-2 days Time of Disposition: 15:19
[2024-08-24 11:37] LABS: Basophils # (A) 0.1 k/uL (0-0.2); Basophils % (A) 1 %; Eosinophils # (A) 0.7 k/uL (0-0.7); Eosinophils % (A) 5 %; HCT 49.4 % (39.0-53.0); Lymphocytes # (A) 2.6 k/uL (1.0-4.8); Lymphocytes % (A) 18 %; MCH 30.4 pg (25.0-35.0); MCHC 34.4 g/dL (31.0-37.0); MCV 88.3 fL (80.0-100.0); Mean Platelet Volume 7.4; Monocytes % (A) 7 %; Neutrophils # (A) 9.9 k/uL (1.3-7.7); Neutrophils % (A) 68 %; Platelet Count 230 k/uL (150-450); RBC 5.59 m/uL (4.30-5.90); RDW 12.8 % (11.5-15.5); WBC 14.6 k/uL (3.8-10.6)
[2024-08-24 11:54] LABS: African American GFR (CKD) >90 (>60 ml/min/1.73 sqM); Anion Gap 7 mmol/L; Blood Urea Nitrogen 24 mg/dL (9-20); Carbon Dioxide 25 mmol/L (22-30); Chloride 105 mmol/L (98-107); Glucose 82 mg/dL (74-99); Non-African American GFR(CKD) 89 (>60 ml/min/1.73 sqM); Potassium 4.1 mmol/L (3.5-5.1); Sodium 137 mmol/L (137-145)
[2024-08-24] MEDS: TRANEXAMIC 1,000 MG/100ML-NACL 1,000 MG in SALINE 1 100ML.BAG IVPB ONE (12:02)
[2024-08-24 14:22] VITALS: RESP 18
[2024-08-24 15:39] VITALS: BP 136/71; PULSE 90
== END 2024-08-24 15:39 | disposition home or self-care (01) ==
LOC: EC 11:10
DX: T78.3XXA Angioneurotic edema, initial encounter (principal)
CPT/HCPCS: 36415; 80048; 85025; 96365; 99283

== ENCOUNTER 2024-08-27 08:03 | Emergency (ER) | payer BC, MEDICARE ==
[2024-08-27 08:09] VITALS: RESP 20; TEMP 97.9
--- NOTE | 2024-08-27 09:02 | ED ---
General Adult HPI - General Chief complaint: Allergic Reaction Stated complaint: Swollen right side of face Time Seen by Provider: 08/27/24 08:45 Source: patient, family, RN notes reviewed Mode of arrival: ambulatory Limitations: no limitations - History of Present Illness Initial comments: Patient is a 69-year-old male present to the emergency department with concerns for right sided facial swelling. Onset of symptoms was around 3 or so in the morning, worse around 7 or so when he woke up. Patient did have similar symptoms previously and was seen here on [facility]. Patient states symptoms have improved since that time. Patient thought he was on lisinopril however he is not. Patient is however on losartan. Patient did have recent antibiotics, discontinued around 4 days ago. No tongue or throat swelling. No dyspnea. Patient has been dealing with generalized body rash for the past several months and that is why he was on antibiotics. Steroids have been completed at this time - Related Data Home Medications Medication Instructions Recorded Confirmed Aspirin EC [Ecotrin Low Dose] 81 mg PO W/BRKFST 11/13/18 08/27/24 Pravastatin Sodium [Pravachol] 20 mg PO 11/13/18 08/27/24 Ascorbic Acid [Vitamin C] 500 mg PO W/BRKFST 02/09/19 08/27/24 Brimonidine Tartrate [Alphagan P 1 drops BOTH EYES BID 08/27/24 08/27/24 0.2% Ophth Soln] Cholecalciferol (Vitamin D3) 50 mcg PO W/BRKFST 08/27/24 08/27/24 [Vitamin D3 (50 Mcg = 2000 Iu)] Latanoprost [Latanoprost 0.005%] 1 drop BOTH EYES HS 08/27/24 08/27/24 Losartan [Cozaar] 50 mg PO W/BRKFST 08/27/24 08/27/24 Metoprolol Tartrate [Lopressor] 50 mg PO BID 08/27/24 08/27/24 Timolol 0.5% Ophth Soln [Timoptic 1 drop BOTH EYES DAILY 08/27/24 08/27/24 0.5% Ophth Soln] hydroCHLOROthiazide [Hydrodiuril] 12.5 mg PO W/BRKFST 08/27/24 08/27/24 metFORMIN HCL [Glucophage] 500 mg PO BID-W/MEALS 08/27/24 08/27/24 Previous Rx's Medication Instructions Recorded predniSONE [Deltasone] 20 mg PO BID #10 tab 08/27/24 Allergies Allergy/AdvReac Type Severity Reaction Status Date / Time No Known Allergies Allergy Verified 08/27/24 09:50 Review of Systems ROS Statement: Those systems with pertinent positive or pertinent negative responses have been documented in the HPI. ROS Other: All systems not noted in ROS Statement are negative. Constitutional: Denies: fever Eyes: Denies: eye pain ENT: Reports: as per HPI. Denies: ear pain Respiratory: Denies: dyspnea Skin: Reports: as per HPI Past Medical History Past Medical History: Diabetes Mellitus, Hyperlipidemia, Hypertension Additional Past Medical History / Comment(s): diverticulosis/diverticulitis History of Any Multi-Drug Resistant Organisms: None Reported Past Surgical History: Hernia Repair Past Psychological History: No Psychological Hx Reported Smoking Status: Never smoker Past Alcohol Use History: None Reported Past Drug Use History: None Reported General Exam Limitations: no limitations General appearance: alert, in no apparent distress Head exam: Present: normocephalic Eye exam: Present: normal appearance ENT exam: Present: normal oropharynx, other (Mild swelling of the right side of the face just lateral to the lips. No dental pain or abscess. Trace lip swelling on the right. No swelling of the tongue or uvula) Neck exam: Present: normal inspection Respiratory exam: Present: normal lung sounds bilaterally. Absent: respiratory distress, wheezes Cardiovascular Exam: Present: regular rate, normal rhythm Extremities exam: Present: normal inspection Neurological exam: Present: alert Psychiatric exam: Present: normal affect, normal mood Skin exam: Present: rash (Generalized erythematous rash with some eschar/scaling formation) Course Vital Signs 08/27/24 08/27/24 08:06 09:21 Temperature 97.9 F Pulse Rate 92 Respiratory 20 20 Rate Blood Pressure 134/81 O2 Sat by Pulse 98 Oximetry Medical Decision Making - Medical Decision Making Patient was advised to hold losartan secondary to being potential cause of his symptoms MDM was pt. sent in by a medical professional or institution (, PA, CIRCULATION DIRECTOR, urgent care, hospital, or half-way...) When possible be specific @ -No Did you speak to anyone other than the patient for history (EMS, parent, family, police, friend...)? What history was obtained from this source @ - is present and helps provide history including medications the patient currently is on Did you review nursing and triage notes (agree or disagree)? Why? @ -I reviewed and agree with nursing and triage notes Were old charts reviewed (outside hosp., previous admission, EMS record, old EKG, old radiological studies, urgent care reports/EKG's, half-way records)? Report findings @ -No old charts were reviewed Differential Diagnosis (chest pain, altered mental status, abdominal pain women, abdominal pain men, vaginal bleeding, weakness, fever, dyspnea, syncope, headache, dizziness, GI bleed, back pain, seizure, CVA, palpatations, mental health, musculoskeletal)? @ -Differential Dyspnea: Coronary syndrome, arrhythmia, tamponade, asthma, COPD, pulmonary embolism, pneumonia, pneumothorax, pulmonary effusion, anaphylaxis, diabetic ketoacidosis, flailed chest, pulmonary contusion, diaphragmatic rupture, anemia, neuromuscular, this is not meant to be an all-inclusive list. EKG interpreted by me (3pts min.). @ -As above X-rays interpreted by me (1pt min.). @ -None done CT interpreted by me (1pt min.). @ -None done U/S interpreted by me (1pt. min.). @ -None done What testing was considered but not performed or refused? (CT, X-rays, U/S, labs)? Why? @ -None What meds were considered but not given or refused? Why? @ -None Did you discuss the management of the patient with other professionals (professionals i.e. , PA, CIRCULATION DIRECTOR, lab, RT, psych nurse, social services aide, adult education professional, teacher, safety officer, case assistant)? Give summary @ -No Was smoking cessation discussed for >3mins.? @ -No Was critical care preformed (if so, how long)? @ -No Were there social determinants of health that impacted care today? How? (Homelessness, low income, unemployed, alcoholism, drug addiction, transportation, low edu. Level, literacy, decrease access to med. care, [facility], rehab)? @ -No Was there de-escalation of care discussed even if they declined (Discuss DNR or withdrawal of care, Hospice)? DNR status @ -No What co-morbidities impacted this encounter? (DM, HTN, Smoking, COPD, CAD, Cancer, CVA, ARF, Chemo, Hep., AIDS, mental health diagnosis, sleep apnea, morbid obesity)? @ -History of recent angioedema Was patient admitted / discharged? Hospital course, mention meds given and route, prescriptions, significant lab abnormalities, going to OR and other pertinent info. @ -Patient presents with swelling of the right cheek. Patient reevaluated an hour after medications with mild improvement. Patient feels better and would like to be discharged. Patient and family updated. Additionally advised to hold losartan. Return parameters discussed Undiagnosed new problem with uncertain prognosis? @ -No Drug Therapy requiring intensive monitoring for toxicity (Heparin, Nitro, Insulin, Cardizem)? @ -No Were any procedures done? @ -No Diagnosis/symptom? @ -Angioedema Acute, or Chronic, or Acute on Chronic? @ -Acute Uncomplicated (without systemic symptoms) or Complicated (systemic symptoms)? @ -Default Side effects of treatment? @ -No Exacerbation, Progression, or Severe Exacerbation? @ -No Poses a threat to life or bodily function? How? (Chest pain, [place], [place], pneumonia, PE, COPD, DKA, ARF, appy, cholecystitis, CVA, Diverticulitis, Homicidal, Suicidal, threat to staff... and all critical care pts) @ -No Disposition Clinical Impression: Angioedema Disposition: HOME SELF-CARE Condition: Stable Instructions (If sedation given, give patient instructions): Angioedema (ED) Additional Instructions: Prescription for steroids sent to pharmacy. Please do follow-up with your primary care physician within the next couple of days for recheck. Return for any difficulty in breathing, swelling of the tongue or back of throat, worsening symptoms or any other concerns. Continue [id number] Benadryl or Claritin or Magda for the next 5 days. [id number] Pepcid for the next 5 days. Discontinue losartan. Prescriptions: predniSONE [Deltasone] 20 mg PO BID #10 tab Is patient prescribed a controlled substance at d/c from ED?: No Referrals: [facility],Clinic [Primary Care Provider] - 1-2 days Time of Disposition: 10:24
[2024-08-27] MEDS: FAMOTIDINE 20 MG TAB PO STA (09:23)
[2024-08-27] MEDS: methylPREDNISolone SOD SUCCI 125 MG/2 ML VIAL IM STA (09:23)
[2024-08-27] MEDS: diphenhydrAMINE 50 MG CAP PO STA (09:23)
[2024-08-27 10:58] VITALS: BP 130/74; PULSE 94
== END 2024-08-27 10:58 | disposition home or self-care (01) ==
LOC: EC 08:03
DX: T78.3XXA Angioneurotic edema, initial encounter (principal)
CPT/HCPCS: 99283; 96372; J2919

== ENCOUNTER 2024-09-05 17:14 | Emergency (ER) | payer BC, MEDICARE ==
--- NOTE | 2024-09-05 18:47 | ED ---
General Adult HPI - General Chief complaint: Allergic Reaction Stated complaint: left eye and side of nose swollen Time Seen by Provider: 09/05/24 17:56 Source: patient Mode of arrival: ambulatory Limitations: no limitations - History of Present Illness Initial comments: Patient is a pleasant 69-year-old gentleman past medical history of hypertension presenting today for facial swelling. History provided by patient and . They state that he presented here [facility] for left facial and left tongue swelling. He was diagnosed with angioedema and discharged home after receiving steroids. About 3 days later returned for similar problem. He was previously on lisinopril and hydrochlorothiazide however his doctor discontinued these approximately 1 week ago. He was started on chlorthalidone and began taking this this past Friday. Today patient states he came home and noticed swelling around his left eye. He endorses mild nasal congestion but denies nasal discharge. Denies fevers or chills. Denies chest pain or shortness of breath. Denies nausea vomiting diarrhea or abdominal pain. Denies known history of allergies. Denies changes in vision or eye pain. Does note that he has had a persistent rash on his bilateral lower extremities buttocks and arms ever since May. His doctor has been telling him to use, subtenon calamine lotion which has somewhat improved the rash. - Related Data Home Medications Medication Instructions Recorded Confirmed Aspirin EC [Ecotrin Low Dose] 81 mg PO W/BRKFST 11/13/18 08/27/24 Pravastatin Sodium [Pravachol] 20 mg PO HS 11/13/18 08/27/24 Ascorbic Acid [Vitamin C] 500 mg PO W/BRKFST 02/09/19 08/27/24 Brimonidine Tartrate [Alphagan P 1 drops BOTH EYES BID 08/27/24 08/27/24 0.2% Ophth Soln] Cholecalciferol (Vitamin D3) 50 mcg PO W/BRKFST 08/27/24 08/27/24 [Vitamin D3 (50 Mcg = 2000 Iu)] Latanoprost [Latanoprost 0.005%] 1 drop BOTH EYES HS 08/27/24 08/27/24 Losartan [Cozaar] 50 mg PO W/BRKFST 08/27/24 08/27/24 Metoprolol Tartrate [Lopressor] 50 mg PO BID 08/27/24 08/27/24 Timolol 0.5% Ophth Soln [Timoptic 1 drop BOTH EYES DAILY 08/27/24 08/27/24 0.5% Ophth Soln] hydroCHLOROthiazide [Hydrodiuril] 12.5 mg PO W/BRKFST 08/27/24 08/27/24 metFORMIN HCL [Glucophage] 500 mg PO BID-W/MEALS 08/27/24 08/27/24 Previous Rx's Medication Instructions Recorded predniSONE [Deltasone] 20 mg PO BID #10 tab 08/27/24 Amoxic-Pot Clav 875-125Mg 1 tab PO BID 7 Days #14 tab 09/05/24 [Augmentin 875-125] predniSONE [Deltasone] 20 mg PO DAILY 5 Days #5 tab 09/05/24 Allergies Allergy/AdvReac Type Severity Reaction Status Date / Time No Known Allergies Allergy Verified 09/05/24 17:42 Review of Systems ROS Statement: Those systems with pertinent positive or pertinent negative responses have been documented in the HPI. ROS Other: All systems not noted in ROS Statement are negative. Past Medical History Past Medical History: Diabetes Mellitus, Hyperlipidemia, Hypertension Additional Past Medical History / Comment(s): diverticulosis/diverticulitis History of Any Multi-Drug Resistant Organisms: None Reported Past Surgical History: Hernia Repair Past Psychological History: No Psychological Hx Reported Smoking Status: Never smoker Past Alcohol Use History: None Reported Past Drug Use History: None Reported General Exam - General Exam Comments Initial Comments: PE: CONSTITUTIONAL: [no apparent distress, well appearing] SKIN: [warm, dry, no jaundice, hives or petechiae] EYES:[ pupils are equally round, extraocular movements intact without nystagmus, clear conjunctiva, non-icteric sclera] HENT: [normocephalic, atraumatic, moist mucus membranes, oropharynx clear without exudates] NECK: , [Full range of motion, normal appearance] PULMONARY: [clear to auscultation without wheezes, rhonchi, or rales, normal excursion, no accessory muscle use and no stridor] CARDIOVASCULAR:[ regular rate, rhythm, normal S1 and S2. No appreciated murmurs, rubs or gallops. Strong radial pulses with intact distal perfusion. No lower extremity edema] GASTROINTESTINAL: [soft, active bowel sounds throughout, non-tender, non- distended, no palpable masses, no rebound or guarding. No hepatosplenomegaly] GENITOURINARY: MUSCULOSKELETAL: [Extremities have no gross deformity, no edema, redness, or swelling. No calf swelling ] NEUROLOGIC: [_a/o x 3, GCS 15, normal mentation and speech. Moves all extremities x 4 without motor or sensory deficit] PSYCHIATRIC:[ _normal mood and affect, thought process is clear and linear] Limitations: no limitations Course Vital Signs 09/05/24 17:42 Temperature 97.6 F Pulse Rate 111 H Respiratory 20 Rate Blood Pressure 156/82 O2 Sat by Pulse 96 Oximetry Medical Decision Making - Medical Decision Making Was pt. sent in by a medical professional or institution (, AMRITA, CONSTRUCTION INSPECTOR, urgent care, hospital, or halfway...) When possible be specific @ -[No] Did you speak to anyone other than the patient for history (EMS, parent, family, police, friend...)? What history was obtained from this source @ -[No] Did you review nursing and triage notes (agree or disagree)? Why? @ -[I reviewed nursing and triage notes] Were old charts reviewed (outside hosp., previous admission, EMS record, old EKG, old radiological studies, urgent care reports/EKG's, halfway records)? Report findings @ -[Medical records reviewed] Differential Diagnosis (chest pain, altered mental status, abdominal pain women, abdominal pain men, vaginal bleeding, weakness, fever, dyspnea, syncope, headache, dizziness, GI bleed, back pain, seizure, CVA, palpatations, mental health, musculoskeletal)? @ -[not applicable] EKG interpreted by me (3pts min.). @ -[As above] X-rays interpreted by me (1pt min.). @ -[None done] CT interpreted by me (1pt min.). @ -[None done] U/S interpreted by me (1pt. min.). @ -[None done] What testing was considered but not performed or refused? (CT, X-rays, U/S, labs)? Why? @ -[None] What meds were considered but not given or refused? Why? @ -[None] Did you discuss the management of the patient with other professionals (professionals i.e. , AMRITA, CONSTRUCTION INSPECTOR, lab, RT, psych nurse, social work program coordinator, relief operator, teacher, port patrol officer, case packer and sealer)? Give summary @ -[No] Was smoking cessation discussed for >3mins.? @ -[No] Was critical care preformed (if so, how long)? @ -[No] Were there social determinants of health that impacted care today? How? (Homelessness, low income, unemployed, alcoholism, drug addiction, transport ation, low edu. Level, literacy, decrease access to med. care, half-way, rehab)? @ -[No] Was there de-escalation of care discussed even if they declined (Discuss DNR or withdrawal of care, Hospice)? @ -[No] What co-morbidities impacted this encounter? (DM, HTN, Smoking, COPD, CAD, Cancer, CVA, ARF, Chemo, Hep., AIDS, mental health diagnosis, sleep apnea, morbid obesity)? @ -[None] Was patient admitted / discharged? Hospital course, mention meds given and route, prescriptions, significant lab abnormalities, going to OR and other pertinent info. @ -[hospital course] this is a pleasant 69-year-old woman presenting today for swelling around his left eye. 2 recent visits for angioedema. Discontinued from his medications. Due to patient's chronic rash and facial swelling despite discontinuing offending medications will obtain basic labs and a CT max face to ensure no underlying evidence of mass or infection. 10 mg Decadron ordered. Patient agreeable plan of care Undiagnosed new problem with uncertain prognosis? @ -[No] Drug Therapy requiring intensive monitoring for toxicity (Heparin, Nitro, Insulin, Cardizem)? @ -[No] Were any procedures done? @ -[No] Diagnosis/symptom? @ -[default] Acute, or Chronic, or Acute on Chronic? @ -[default] Uncomplicated (without systemic symptoms) or Complicated (systemic symptoms)? @ -[default] Side effects of treatment? @ -[No] Exacerbation, Progression, or Severe Exacerbation? @ -[No] Poses a threat to life or bodily function? How? (Chest pain, [place], [place], pneumonia, PE, COPD, DKA, ARF, appy, cholecystitis, CVA, Diverticulitis, Homicidal, Suicidal, threat to staff... and all critical care pts) @ -[No] - Lab Data Result diagrams: 09/05/24 19:00 01/12/25 19:00 Lab Results 09/05/24 09/05/24 Range/Units 19:00 19:00 WBC 13.0 H (3.8-10.6) k/uL RBC 5.94 H (4.30-5.90) m/uL Hgb 18.1 H (13.0-17.5) gm/dL Hct 52.4 (39.0-53.0) % MCV 88.2 (80.0-100.0) fL MCH 30.5 (25.0-35.0) pg MCHC 34.5 (31.0-37.0) g/dL RDW 12.9 (11.5-15.5) % Plt Count 237 (150-450) k/uL MPV 7.4 Neutrophils % 61 % Lymphocytes % 25 % Monocytes % 5 % Eosinophils % 7 % Basophils % 1 % Neutrophils # 7.9 H (1.3-7.7) k/uL Lymphocytes # 3.2 (1.0-4.8) k/uL Monocytes # 0.7 (0-1.0) k/uL Eosinophils # 0.9 H (0-0.7) k/uL Basophils # 0.1 (0-0.2) k/uL Sodium 136 L (137-145) mmol/L Potassium 4.2 (3.5-5.1) mmol/L Chloride 103 (98-107) mmol/L Carbon Dioxide 22 (22-30) mmol/L Anion Gap 11 mmol/L BUN 14 (9-20) mg/dL Creatinine 0.83 (0.66-1.25) mg/dL Est GFR (CKD-EPI)AfAm >90 (>60 ml/min/1.73 sqM) Est GFR (CKD-EPI)NonAf 90 (>60 ml/min/1.73 sqM) Glucose 104 H (74-99) mg/dL Calcium 10.3 H (8.4-10.2) mg/dL Total Bilirubin 0.7 (0.2-1.3) mg/dL AST 21 (17-59) U/L ALT 23 (4-49) U/L Alkaline Phosphatase 76 (38-126) U/L C-Reactive Protein 1.4 H (<1.0) mg/dL Total Protein 6.6 (6.3-8.2) g/dL Albumin 4.4 (3.5-5.0) g/dL Disposition Clinical Impression: Periorbital edema of left eye Disposition: HOME SELF-CARE Condition: Good Additional Instructions: Every disease is a spectrum and a small chance still exists that a serious condition could develop, for this reason, please monitor yourself closely for new, changing or worsening symptoms, symptoms that persist beyond 48 hours, tongue swelling, feeling like your throat is swelling, voice changes, difficulty in breathing, chest pain, changes in vision, pain with moving your eye or unable to move your eye due to pain fever, inability to tolerate/keep down fluids or your medications, inability to follow up with outpatient providers as instructed and should you experience these symptoms or should you have any further concerns for your wellbeing please return to the ED or call 911 immediately. PLEASE call your primary care physician as soon as possible to arrange / discuss plan for followup appointment. Appointment in the next 1-3 days is strongly encouraged if possible. PLEASE let us know here before you leave if there is anything further we can do to be of any assistance. Take care and feel Better! Prescriptions: Amoxic-Pot Clav 875-125Mg [Augmentin 875-125] 1 tab PO BID 7 Days #14 tab predniSONE [Deltasone] 20 mg PO DAILY 5 Days #5 tab Is patient prescribed a controlled substance at d/c from ED?: No Referrals: Gelacio Hancock PAC [Family Provider] - 1-2 days
[2024-09-05] MEDS: DEXAMETHASONE SOD PHOSPHATE 10 MG/ML 1 ML VIAL IVP STA (19:00)
[2024-09-05 19:12] LABS: Basophils # (A) 0.1 k/uL (0-0.2); Basophils % (A) 1 %; Eosinophils # (A) 0.9 k/uL (0-0.7); Eosinophils % (A) 7 %; HCT 52.4 % (39.0-53.0); HGB 18.1 gm/dL (13.0-17.5); Lymphocytes # (A) 3.2 k/uL (1.0-4.8); Lymphocytes % (A) 25 %; MCH 30.5 pg (25.0-35.0); MCHC 34.5 g/dL (31.0-37.0); MCV 88.2 fL (80.0-100.0); Mean Platelet Volume 7.4; Monocytes # (A) 0.7 k/uL (0-1.0); Monocytes % (A) 5 %; Neutrophils # (A) 7.9 k/uL (1.3-7.7); Neutrophils % (A) 61 %; Platelet Count 237 k/uL (150-450); RBC 5.94 m/uL (4.30-5.90); RDW 12.9 % (11.5-15.5)
[2024-09-05 19:27] LABS: ALT 23 U/L (4-49); AST 21 U/L (17-59); African American GFR (CKD) >90 (>60 ml/min/1.73 sqM); Albumin 4.4 g/dL (3.5-5.0); Alkaline Phosphatase 76 U/L (38-126); Anion Gap 11 mmol/L; Blood Urea Nitrogen 14 mg/dL (9-20); C Reactive Protein 1.4 mg/dL (<1.0); Calcium 10.3 mg/dL (8.4-10.2); Carbon Dioxide 22 mmol/L (22-30); Chloride 103 mmol/L (98-107); Glucose 104 mg/dL (74-99); Non-African American GFR(CKD) 90 (>60 ml/min/1.73 sqM); Potassium 4.2 mmol/L (3.5-5.1); Sodium 136 mmol/L (137-145); Total Bilirubin 0.7 mg/dL (0.2-1.3); Total Protein 6.6 g/dL (6.3-8.2)
--- NOTE | 2024-09-05 20:36 | CT ---
EXAMINATION TYPE: CT facial bones w con DATE OF EXAM: 09/05/2024 8:17 PM COMPARISON: None. CLINICAL INDICATION: Male, 69 years old with history of intermittent face swelling, left eye now, swe lling to left side of face TECHNIQUE: The paranasal sinuses are examined in the axial plane at 2 mm thick sections. Reconstruct ed images in the coronal plane were obtained. Contrast used:100 mL of Isovue 300 with IV Contrast, (none if empty) Oral contrast used: (none if empty) CT DLP: 631.1 mGycm, Automated exposure control for dose reduction was used. FINDINGS: There is dental amalgam scatter artifact There is some soft tissue swelling over the frontal region. Some periorbital soft tissue swelling is present on the left. Minimal soft tissue swelling is in the cheek of the inferior orbital region. No postseptal extension is identified. There is been prior uncinectomies. The maxillary sinuses are clear. The ethmoid air cells are clear. The sphenoid sinuses are clear. The frontal sinuses are clear. Mastoid air cells are clear. The septum is evaluated. There is septal deviation to the left. Prior uncinectomies been performed. The ostiomeatal units are patent. IMPRESSION: 1. Mild soft tissue swelling over the left frontal and left periorbital regions. No postseptal exten joseph is identified. Mild cellulitis should be considered. [facility], , 09/05/2024 8:34 PM
[2024-09-05] MEDS: AMOXIC-POT CLAV 875MG STARTER PACK 2 TAB BTL PO STA (21:25)
[2024-09-05 21:38] VITALS: BP 149/91; PULSE 98; RESP 16; TEMP 98.1
[2024-09-05 22:35] LABS: Erythrocyte Sedimentation Rate 7 mm/Hr (0-20)
== END 2024-09-05 21:39 | disposition home or self-care (01) ==
LOC: EC 17:14
DX: H05.222 Edema of left orbit (principal)
CPT/HCPCS: 36415; 80053; 85652; 85025; 86140; 70487; 99284; 96374; J1100; Q9967

== ENCOUNTER 2024-09-11 16:52 | Emergency (ER) | payer BC, MEDICARE ==
[2024-09-11 16:56] VITALS: RESP 18
--- NOTE | 2024-09-11 17:13 | ED ---
Recheck HPI - General Chief Complaint: Recheck/Abnormal Lab/Rx Stated Complaint: r side tounge swollen Time Seen by Provider: 09/11/24 16:58 Source: patient, RN notes reviewed Mode of arrival: ambulatory Limitations: no limitations - History of Present Illness Initial Comments: This is a 69-year-old male with history of hypertension [facility] with for concern of left-sided tongue swelling. Patient has been evaluated multiple times emergency room over the past month with this being his fourth visit with deferring signs of swelling. Patient said he took a nap earlier this afternoon and when he woke up noticed that the right side of his tongue was mildly swollen. Patient denies dysphagia, dysphagia, or mouth swelling, throat swelling. Patient was recently prescribed Augmentin and steroids from recent emergency department visit. States that he has completed prednisone however is still taking the Augmentin. - Related Data Home Medications Medication Instructions Recorded Confirmed Aspirin EC [Ecotrin Low Dose] 81 mg PO W/BRKFST 11/13/18 08/27/24 Pravastatin Sodium [Pravachol] 20 mg PO HS 11/13/18 08/27/24 Ascorbic Acid [Vitamin C] 500 mg PO W/BRKFST 02/09/19 08/27/24 Brimonidine Tartrate [Alphagan P 1 drops BOTH EYES BID 08/27/24 08/27/24 0.2% Ophth Soln] Cholecalciferol (Vitamin D3) 50 mcg PO W/BRKFST 08/27/24 08/27/24 [Vitamin D3 (50 Mcg = 2000 Iu)] Latanoprost [Latanoprost 0.005%] 1 drop BOTH EYES HS 08/27/24 08/27/24 Losartan [Cozaar] 50 mg PO W/BRKFST 08/27/24 08/27/24 Metoprolol Tartrate [Lopressor] 50 mg PO BID 08/27/24 08/27/24 Timolol 0.5% Ophth Soln [Timoptic 1 drop BOTH EYES DAILY 08/27/24 08/27/24 0.5% Ophth Soln] hydroCHLOROthiazide [Hydrodiuril] 12.5 mg PO W/BRKFST 08/27/24 08/27/24 metFORMIN HCL [Glucophage] 500 mg PO BID-W/MEALS 08/27/24 08/27/24 Previous Rx's Medication Instructions Recorded predniSONE [Deltasone] 20 mg PO BID #10 tab 08/27/24 Amoxic-Pot Clav 875-125Mg 1 tab PO BID 7 Days #14 tab 09/05/24 [Augmentin 875-125] predniSONE [Deltasone] 20 mg PO DAILY 5 Days #5 tab 09/05/24 Allergies Allergy/AdvReac Type Severity Reaction Status Date / Time No Known Allergies Allergy Verified 09/11/24 16:57 Review of Systems ROS Statement: Those systems with pertinent positive or pertinent negative responses have been documented in the HPI. ROS Other: All systems not noted in ROS Statement are negative. Past Medical History Past Medical History: Diabetes Mellitus, Hyperlipidemia, Hypertension Additional Past Medical History / Comment(s): diverticulosis/diverticulitis History of Any Multi-Drug Resistant Organisms: None Reported Past Surgical History: Hernia Repair Past Psychological History: No Psychological Hx Reported Smoking Status: Never smoker Past Alcohol Use History: None Reported Past Drug Use History: None Reported General Exam Limitations: no limitations General appearance: alert, in no apparent distress ENT exam: Present: other (right sided tongue swelling with no evidence of lip/throat/posterior oropharynx erythema) Respiratory exam: Present: normal lung sounds bilaterally. Absent: respiratory distress, wheezes, rales, rhonchi, stridor Cardiovascular Exam: Present: regular rate, normal rhythm, normal heart sounds. Absent: systolic murmur, diastolic murmur, rubs, gallop, clicks GI/Abdominal exam: Present: soft, normal bowel sounds. Absent: distended, tenderness, guarding, rebound, rigid Extremities exam: Present: normal inspection, full ROM, normal capillary refill. Absent: tenderness, pedal edema, joint swelling, calf tenderness Back exam: Present: normal inspection Course Vital Signs 09/11/24 09/11/24 16:52 18:12 Temperature 97.6 F 98.4 F Pulse Rate 94 83 Respiratory 18 18 Rate Blood Pressure 166/85 164/85 O2 Sat by Pulse 98 99 Oximetry Medical Decision Making - Medical Decision Making Was pt. sent in by a medical professional or institution (, PA, VACUUM CLOSING MACHINE OPERATOR, urgent care, hospital, or [facility]...) When possible be specific @ -No Did you speak to anyone other than the patient for history (EMS, parent, family, police, friend...)? What history was obtained from this source @ -No Did you review nursing and triage notes (agree or disagree)? Why? @ -I reviewed and agree with nursing and triage notes Were old charts reviewed (outside hosp., previous admission, EMS record, old EKG, old radiological studies, urgent care reports/EKG's, [facility] records)? Report findings @ -No old charts were reviewed Differential Diagnosis (chest pain, altered mental status, abdominal pain women, abdominal pain men, vaginal bleeding, weakness, fever, dyspnea, syncope, headache, dizziness, GI bleed, back pain, seizure, CVA, palpatations, mental health, musculoskeletal)? @ -Hereditary angioedema, anaphylaxis, dermatitis, this list not all inclusive EKG interpreted by me (3pts min.). @ -none X-rays interpreted by me (1pt min.). @ -None done CT interpreted by me (1pt min.). @ -None done U/S interpreted by me (1pt. min.). @ -None done What testing was considered but not performed or refused? (CT, X-rays, U/S, labs)? Why? @ -None What meds were considered but not given or refused? Why? @ -None Did you discuss the management of the patient with other professionals (professionals i.e. , PA, VACUUM CLOSING MACHINE OPERATOR, lab, RT, psych nurse, social director, lawyer probate, teacher, contracts officer, shoe caser)? Give summary @ -No Was smoking cessation discussed for >3mins.? @ -No Was critical care preformed (if so, how long)? @ -No Were there social determinants of health that impacted care today? How? (Homelessness, low income, unemployed, alcoholism, drug addiction, transportat ion, low edu. Level, literacy, decrease access to med. care, assisted, rehab)? @ -No Was there de-escalation of care discussed even if they declined (Discuss DNR or withdrawal of care, Hospice)? DNR status @ -No What co-morbidities impacted this encounter? (DM, HTN, Smoking, COPD, CAD, Cancer, CVA, ARF, Chemo, Hep., AIDS, mental health diagnosis, sleep apnea, morbid obesity)? @ -None Was patient admitted / discharged? Hospital course, mention meds given and route, prescriptions, significant lab abnormalities, going to OR and other pertinent info. @ -Discharge. 69 male presenting with swelling to the right side of the tongue. Patient provided with Benadryl on Pepcid. Patient has been observed here department for over an hour with no worsening of symptoms and swelling is mildly improved. Discussion with patient it is important that he follows up with primary care provider as scheduled on Friday for further evaluation. Recommend that he continue to take Benadryl and Pepcid as needed for intermittent swelling. Patient has no signs concerning for impending airway compromise such as throat swelling, dysphagia. Additionally, vitals are stable. Believe that additional course of prednisone is unnecessary at this time as patient has had multiple courses over the past month with no change in symptoms. case discussed with Dr. Bajwa Undiagnosed new problem with uncertain prognosis? @ -No Drug Therapy requiring intensive monitoring for toxicity (Heparin, Nitro, Insulin, Cardizem)? @ -No Were any procedures done? @ -No Diagnosis/symptom? @ -tongue swelling, angioedema Acute, or Chronic, or Acute on Chronic? @ -acute Uncomplicated (without systemic symptoms) or Complicated (systemic symptoms)? @ -uncomplicated Side effects of treatment? @ -No Exacerbation, Progression, or Severe Exacerbation? @ -No Poses a threat to life or bodily function? How? (Chest pain, [place], [place], pneumonia, PE, COPD, DKA, ARF, appy, cholecystitis, CVA, Diverticulitis, Homicidal, Suicidal, threat to staff... and all critical care pts) @ -No Disposition Clinical Impression: Tongue swelling Disposition: HOME SELF-CARE Condition: Stable Additional Instructions: Please return to the Emergency Department if symptoms worsen or any other concerns. Is patient prescribed a controlled substance at d/c from ED?: No Referrals: [facility] [Primary Care Provider] - 1-2 days Time of Disposition: 18:00
[2024-09-11] MEDS: FAMOTIDINE 20 MG TAB PO STA (17:29)
[2024-09-11] MEDS: diphenhydrAMINE 50 MG/ML 1 ML VIAL IM STA (17:29)
[2024-09-11 18:18] VITALS: BP 164/85; PULSE 83; TEMP 98.4
== END 2024-09-11 18:19 | disposition home or self-care (01) ==
LOC: EC 16:52
DX: R22.0 Localized swelling, mass and lump, head (principal)
CPT/HCPCS: 99283; 96372; J1200